=== PATIENT | female | born 1930 | race Caucasian/White ===

== ENCOUNTER → 2016-09-23 | Outpatient (CLI) | payer MEDICARE, BC ==
[2016-09-23 17:06] LABS: CHLORIDE,CL 101 mmol/L (98-110); SODIUM,NA 140 mmol/L (136-146)
--- NOTE | 2016-09-24 10:38 | CR ---
EXAM DATE: 09/23/16 PATIENT'S AGE: 86 Patient: SHILA LUQUE Facility: [place], [place] Site . Site : 1930 Study: XRay Chest [id number] 5:18:31 PM Ordering Physician: Mak Carrasquillo Final Report: INDICATION: Chest pain; cardiac valve replacement. Comparison: None. Technique: Two-view chest. Findings: Mild cardiomegaly. Bilateral pleural effusion. Atelectatic changes and / or infiltrates both lung bases. Mild CHF. Impression: Mild cardiomegaly. 1. CHF with bilateral pleural effusion. Dictated by Rosita Ma MD @ Sep 23 2016 5:33PM (Electronic Signature) Report Signed by Proxy and Original Signed Document filed in the Medical Record. MTDD
== END ==
LOC: MW.CHFP 16:24
PROVIDERS: ATTEND Emergency Medicine
DX: I48.91 Unspecified atrial fibrillation (principal); Z95.4 Presence of other heart-valve replacement; M54.9 Dorsalgia, unspecified; I50.9 Heart failure, unspecified; J90 Pleural effusion, not elsewhere classified
CPT/HCPCS: 36415; 71020; 71020-26; 80053; 84443; 85027; 99214

== ENCOUNTER 2017-05-02 11:40 | Emergency (ER) | payer MEDICARE, BC ==
[2017-05-02] MEDS ORDERED: Succinylcholine 200 MG/10 ML MDV IV ONE (11:41)
[2017-05-02] MEDS ORDERED: Rocuronium 50 MG/5 ML Vial IV ONE (11:41)
[2017-05-02] MEDS ORDERED: Sodium Chloride 0.9% 10 ML Syringe FLUSH PRN (12:02)
[2017-05-02] MEDS ORDERED: Sodium Chloride 0.9% 2.5 ML Syringe FLUSH PRN (12:02)
--- NOTE | 2017-05-02 12:14 | EDM.PDOC ---
ED HPI GENERAL MEDICAL PROBLEM - General Chief Complaint: Respiratory Problem Stated Complaint: SOB Time Seen by Provider: 05/02/17 11:43 - History of Present Illness INITIAL COMMENTS - FREE TEXT/NARRATIVE: HISTORY AND PHYSICAL: History of present illness: The patient is an 87-year-old female who has an extensive medical history and follows in our clinic with both our drafter (cad) electronic and family practice and has a history of controlled A. fib aortic valve replacement with bioprosthetic valve hypertension bilateral pleural effusions chronic oxygen use thrombocytopenia who recently had a chest x-ray on April 06 revealing a small left pleural effusion and a moderate right pleural effusion and who has also been seeing cardiology in [place], Dr. Mobley who has performed a total of 3 thoracentesis on the patient due to recurrent pleural effusions the last one being performed on April 07 and presents today with family with complaints of shortness of breath fatigue and increased somnolence. According to a close friend who has been functioning as a part-time caregiver she has been feeling increased fatigue and sleeping more than usual and has had difficulty waking up in the morning but by the middle of the day is doing better fact yesterday had similar symptoms and went out for a walk in the afternoon. This morning they noticed that she was more sleepy than usual and did not seem to regain any energy and she seemed more short of breath so they brought her here. When I ask her why she is here she is just saying that she sleeping all the time and she denies any chest pain abdominal pain nausea vomiting fever cough or leg pain. She does state that her legs have been swollen for some time and she does not think that they're significantly different or new. According to the caregiver she did have an increase of weight prior to the last thoracentesis but they have not been weighing her more recently. On my evaluation the patient does not state that she is short of breath and is cooperative and interactive but very hard of hearing. She is not the best historian and according to the friend she often doesn't complain of anything even though there are things that are wrong with her. Her daughter is in route to the hospital and may be able to provide more information. At this point we are unclear of her CODE STATUS or her wishes regarding intubation. Please note that according to the computer records from the clinic on December 23 [address] drafter (cad) electronic Dr. Oconnor stopped her Jantoven anticoagulation and placed her on 81 mg of aspirin only. According to her last clinic encounter note on April 23 she was presenting for follow-up after going a thoracentesis of bilateral lungs and she had a total of 3 L removed she says at that time that she still gets very winded and her oxygen level decreases are quickly with any exertion and she's fatigued and tired all the time. She had dependent edema at that time and she had some medication adjustment and has not followed up since that time. Review of systems: As per history of present illness and below otherwise all systems reviewed and negative. Past medical history: As per history of present illness and as reviewed below otherwise noncontributory. Surgical history: As per history of present illness and as reviewed below otherwise noncontributory. Social history: No reported history of drug or alcohol abuse. Family history: As per history of present illness and as reviewed below otherwise noncontributory. Physical exam: Gen.: Very frail thin woman who is speaking with slight breathlessness but is cooperative interactive and able to move about the bed without assistance but is somewhat breathless with transferring and any activities. She has some increased sleepiness but is very arousable. Her vitals have been noted by me. HEENT: Atraumatic, normocephalic, pupils reactive, negative for conjunctival pallor or scleral icterus, mucous membranes tacky, throat clear, neck supple, nontender, trachea midline. Lungs: There is severely diminished breath sounds bilaterally on the right side two thirds [address] the way up and on the left about one half of, there is some mild abdominal work of breathing but no gross intercostal muscle use, there is no wheezing or stridor, chest nontender. Heart: S1S2, regular rate and rhythm and there is a very loud mechanical murmur consistent with her aortic valve replacement appreciated at the left sternal border but which resonates throughout the chest Abdomen: Soft, nondistended, nontender the patient is tympanitic on percussion and bowel sounds are hypoactive. The abdomen is very globular but there is no tenderness rebound or guarding Negative for masses or hepatosplenomegaly. Negative for costovertebral tenderness. Pelvis: Stable nontender. Genitourinary: Deferred. Rectal: Deferred. Extremities: Atraumatic, negative for cords or calf pain. Neurovascular unremarkable. There is dependent edema which she has 2+ extending up to the level of the knees bilaterally without leg asymmetry Neuro: Awake, alert, oriented. Motor and sensory unremarkable throughout. Exam nonfocal. Back: The patient has kyphosis of the thoracic spine and is very frail but there are no palpable bony deformities of the posterior ribs or posterior pelvis and there are no midline step-offs tenderness or defects of the thoracic or lumbar spine. Skin: Turgor is diminished overall but there is no overt rashes or lesions Diagnostics: EKG 2 chest x-ray CBC CMP INR troponin BNP ABG Therapeutics: IV O2 monitor TKO IV fluids, CPap Lasix Initial O2 sat was 63% and after 10 L nonrebreather was placed her sats went up to 96%. She is still having the worker breathing so we will ask respiratory to assess for C Pap 1210: We are currently trying C Pap and the daughter is in route. At this point I will have a formal discussion with the daughter arrives regarding the patient' s wishes expressed wishes for long-term management of her airway if it becomes necessary. Currently her sats have come up with increased oxygen and we will reassess after C Pap is in place and an ABG is performed. 1230: Daughter is currently here at bedside and have discussed with her the chest x-ray findings and the patient's clinical state. She has seen the x-ray as well. She states that the patient would want everything performed to help her and she is aware that we are trying the C Pap and will reevaluate pending the ABG results to determine if she will need intubation. The daughter states that the patient's preference would be to go to [facility] in [place] where she has had intervention in the past. I will start making those phone calls to arrange that transfer. 1338: After phone calls to [facility] in [place] they have informed us that they do not the capability to accept this patient and the daughter and family friend at bedside are aware of this. Initially they did not want to go to [facility] in [place] but after some conversation they are now agreeable for transfer there. This case was discussed with Dr. Mena in the ER at 1338 and he accepts the patient for transfer. We will send all the clinic notes with her as well as push the x-ray from today and the one done previously on April 06. With the second ABG results of the patient will be intubated both for airway protection and for deterioration and CO2 retention. The daughter and family friend are aware that the second ABG is worsening and that it is not safe to not intubate her and try to maximize her lung abilities. Anesthesia is currently here at bedside and planning to intubate and then packaged for immediate transfer. Please see their notes for intubation procedure. In reading her old clinic reports there is documentation by our drafter (cad) electronic in December of this year that the patient's last echocardiogram was in February 2016 showing an EF of 55-60% trace TR trace MR mild to moderate MS and a normal functioning aVR. According to the clinic note of April 23 of this year the patient was on Lasix but Spirolactone 25 mg daily was started. The patient was offered local thoracentesis with Dr. weiner and she had deferred doing that due to her relationship with a drafter (cad) electronic in [place]. Critical care time excluding procedures--50 min Impression: Recurrent bilateral pleural effusions with dyspnea hypoxia/acute respiratory distress and hypercarbia Definitive disposition and diagnosis as appropriate pending reevaluation and review of above. - Related Data Allergies Allergy/AdvReac Type Severity Reaction Status Date / Time enalapril Allergy Cough Verified 05/02/17 13:04 Home Meds: Home Meds Aspirin 325 mg PO DAILY 04/11/16 [History] Calcium Carbonate/Vitamin D3 [Calcium 500-Vit D3 200 Tablet] 1 tab PO DAILY [History] Ferrous Gluconate 324 mg PO DAILY 04/11/16 [History] Furosemide 40 mg PO DAILY 04/11/16 [History] Magnesium Oxide [Magnesium] 400 mg PO BID 04/11/16 [History] Metoprolol Succinate [Toprol XL] 25 mg PO BID 04/11/16 [History] Spironolactone [Aldactone] 25 mg PO DAILY 05/02/17 [History] Past Medical History HEENT History: Reports: Cataract, Hard of Hearing, Impaired Vision Cardiovascular History: Reports: Other (See Below) Other Cardiovascular History: Hx of CHF and A-fib with 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 Stable since Gastrointestinal History: Reports: None. Denies: Celiac Disease, Cholelithiasis , Cirrhosis Genitourinary History: Reports: None. 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 Denies: Alzheimers Disease, CVA Psychiatric History: Reports: None. Denies: Addiction, Alzheimers Disease, Dementia, Psychosis, Suicide Attempt Endocrine/Metabolic History: Reports: None. Denies: [place]'s Disease, Diabetes , Type I, Diabetes, Type II Hematologic History: Reports: Anemia (Acute). Denies: Anticoagulation Therapy ( except aspirin), Hemochromatosis Immunologic History: Reports: None Oncologic (Cancer) History: Reports: Other (See Below) Dermatologic History: Reports: None - Infectious Disease History Infectious Disease History: Reports: Chicken Pox, Influenza, Measles, Mumps - Past Surgical History HEENT Surgical History: Reports: Cataract Surgery Cardiovascular Surgical History: Reports: Valve Replacement Musculoskeletal Surgical History: Reports: Knee Replacement, Other (See Below) Oncologic Surgical History: Reports: Mastectomy, Other (See Below) Social & Family History - Family History Family Medical History: Noncontributory - Tobacco Use Smoking Status *Q: Never Smoker - Caffeine Use Caffeine Use: Reports: None - Recreational Drug Use Recreational Drug Use: No ED ROS GENERAL - Review of Systems Review Of Systems: ROS reveals no pertinent complaints other than HPI. ED EXAM, GENERAL - Physical Exam Exam: See Below (See dictation) Course - Vital Signs Last Recorded V/S: Last Vital Signs Temp 36.6 C 05/02/17 13:28 Pulse 84 05/02/17 13:28 Resp 24 H 05/02/17 13:28 BP 132/77 05/02/17 13:28 Pulse Ox 96 05/02/17 12:05 - Orders/Labs/Meds Orders: Active Orders 24 hr Category Date Time Status Cardiac Monitoring [RC] . DIRECTED Care 05/02/17 12:01 Active EKG Documentation Completion [RC] STAT Care 05/02/17 12:00 Active EKG Documentation Completion [RC] STAT Care 05/02/17 12:03 Active Oxygen Therapy, ED [RC] ASDIRECTED Care 05/02/17 12:01 Active Pulse Oximetry [RC] ASDIRECTED Care 05/02/17 12:01 Active Chest 1V Frontal [CR] Stat Exams 05/02/17 12:01 Taken Sodium Chloride 0.9% [Normal Saline] 1,000 ml Med 05/02/17 12:15 Active IV ASDIRECTED Sodium Chloride 0.9% [Saline Flush] Med 05/02/17 12:02 Active 10 ml FLUSH ASDIRECTED PRN Sodium Chloride 0.9% [Saline Flush] Med 05/02/17 12:02 Active 2.5 ml FLUSH ASDIRECTED PRN Saline Lock Insert [OM.PC] Stat Oth 05/02/17 12:01 Ordered Medication Orders Sodium Chloride (Normal Saline) 1,000 mls @ 20 mls/hr IV ASDIRECTED ALVAREZ Last Admin: 05/02/17 12:07 Dose: 20 mls/hr Sodium Chloride (Saline Flush) 10 ml FLUSH ASDIRECTED PRN PRN Reason: Keep Vein Open Last Admin: 05/02/17 12:11 Dose: 10 ml Sodium Chloride (Saline Flush) 2.5 ml FLUSH ASDIRECTED PRN PRN Reason: Keep Vein Open Last Admin: 05/02/17 12:11 Dose: 2.5 ml Labs: Laboratory Tests 05/02/17 05/02/17 05/02/17 Range/Units 11:55 11:55 11:55 WBC 5.11 (4.0-11.0) K/uL RBC 4.72 (4.30-5.90) M/uL Hgb 13.9 (12.0-16.0) g/dL Hct 47.8 H (36.0-46.0) % MCV 101.3 H (80.0-98.0) fL MCH 29.4 (27.0-32.0) pg MCHC 29.1 L (31.0-37.0) g/dL RDW Std Deviation 55.3 (28.0-62.0) fl RDW Coeff of Shravan 15 (11.0-15.0) % Plt Count 114 L (150-400) K/uL MPV 11.00 (7.40-12.00) fL Neut % (Auto) 84.6 H (48.0-80.0) % Lymph % (Auto) 7.4 L (16.0-40.0) % Caldwell % (Auto) 7.4 (0.0-15.0) % Eos % (Auto) 0.2 (0.0-7.0) % Baso % (Auto) 0.4 (0.0-1.5) % Neut # (Auto) 4.3 (1.4-5.7) K/uL Lymph # (Auto) 0.4 L (0.6-2.4) K/uL Caldwell # (Auto) 0.4 (0.0-0.8) K/uL Eos # (Auto) 0.0 (0.0-0.7) K/uL Baso # (Auto) 0.0 (0.0-0.1) K/uL Nucleated RBC % 0.0 /100WBC Nucleated RBCs # 0 K/uL INR 1.05 (0.86-1.11) ABG pH (7.35-7.45) ABG pCO2 (35-45) mmHG ABG pO2 (75-100) mmHG ABG HCO3 (22-26) mEq/L ABG Total CO2 ABG Base Excess (-2.0-2.0) Sodium 144 (136-146) mmol/L Potassium 4.4 (3.5-5.1) mmol/L Chloride 92 L (98-110) mmol/L Carbon Dioxide 38 H (21-31) mmol/L BUN 38 H (6.0-23.0) mg/dL Creatinine 0.8 (0.6-1.5) mg/dL Est Cr Clr Drug Dosing 43.67 mL/min Estimated GFR (MDRD) > 60.0 ml/min Glucose 182 H (60-110) mg/dL Calcium 9.6 (8.8-10.8) mg/dL Total Bilirubin 0.4 (0.1-1.5) mg/dL AST 37 (5-40) IU/L ALT 32 (8-54) IU/L Alkaline Phosphatase 95 (40-150) Troponin I (0.0-0.29) NG/ML B-Natriuretic Peptide (<100) PG/ML Total Protein 7.1 (6.0-8.0) g/dL Albumin 3.1 L (3.4-4.8) g/dL Globulin 4.0 H (2.0-3.5) g/dL Albumin/Globulin Ratio 0.8 L (1.3-2.8) 05/02/17 05/02/17 05/02/17 Range/Units 11:55 11:55 12:50 WBC (4.0-11.0) K/uL RBC (4.30-5.90) M/uL Hgb (12.0-16.0) g/dL Hct (36.0-46.0) % MCV (80.0-98.0) fL MCH (27.0-32.0) pg MCHC (31.0-37.0) g/dL RDW Std Deviation (28.0-62.0) fl RDW Coeff of Shravan (11.0-15.0) % Plt Count (150-400) K/uL MPV (7.40-12.00) fL Neut % (Auto) (48.0-80.0) % Lymph % (Auto) (16.0-40.0) % Caldwell % (Auto) (0.0-15.0) % Eos % (Auto) (0.0-7.0) % Baso % (Auto) (0.0-1.5) % Neut # (Auto) (1.4-5.7) K/uL Lymph # (Auto) (0.6-2.4) K/uL Caldwell # (Auto) (0.0-0.8) K/uL Eos # (Auto) (0.0-0.7) K/uL Baso # (Auto) (0.0-0.1) K/uL Nucleated RBC % /100WBC Nucleated RBCs # K/uL INR (0.86-1.11) ABG pH 7.324 L (7.35-7.45) ABG pCO2 100 H (35-45) mmHG ABG pO2 78 (75-100) mmHG ABG HCO3 52 H (22-26) mEq/L ABG Total CO2 47.4 ABG Base Excess 20.4 H (-2.0-2.0) Sodium (136-146) mmol/L Potassium (3.5-5.1) mmol/L Chloride (98-110) mmol/L Carbon Dioxide (21-31) mmol/L BUN (6.0-23.0) mg/dL Creatinine (0.6-1.5) mg/dL Est Cr Clr Drug Dosing mL/min Estimated GFR (MDRD) ml/min Glucose (60-110) mg/dL Calcium (8.8-10.8) mg/dL Total Bilirubin (0.1-1.5) mg/dL AST (5-40) IU/L ALT (8-54) IU/L Alkaline Phosphatase (40-150) Troponin I < 0.10 (0.0-0.29) NG/ML B-Natriuretic Peptide 253 H (<100) PG/ML Total Protein (6.0-8.0) g/dL Albumin (3.4-4.8) g/dL Globulin (2.0-3.5) g/dL Albumin/Globulin Ratio (1.3-2.8) 05/02/17 Range/Units 13:31 WBC (4.0-11.0) K/uL RBC (4.30-5.90) M/uL Hgb (12.0-16.0) g/dL Hct (36.0-46.0) % MCV (80.0-98.0) fL MCH (27.0-32.0) pg MCHC (31.0-37.0) g/dL RDW Std Deviation (28.0-62.0) fl RDW Coeff of Shravan (11.0-15.0) % Plt Count (150-400) K/uL MPV (7.40-12.00) fL Neut % (Auto) (48.0-80.0) % Lymph % (Auto) (16.0-40.0) % Caldwell % (Auto) (0.0-15.0) % Eos % (Auto) (0.0-7.0) % Baso % (Auto) (0.0-1.5) % Neut # (Auto) (1.4-5.7) K/uL Lymph # (Auto) (0.6-2.4) K/uL Caldwell # (Auto) (0.0-0.8) K/uL Eos # (Auto) (0.0-0.7) K/uL Baso # (Auto) (0.0-0.1) K/uL Nucleated RBC % /100WBC Nucleated RBCs # K/uL INR (0.86-1.11) ABG pH 7.275 L (7.35-7.45) ABG pCO2 > 107 H (35-45) mmHG ABG pO2 82 (75-100) mmHG ABG HCO3 55.1 (22-26) mEq/L ABG Total CO2 > 50 ABG Base Excess 22 (-2.0-2.0) Sodium (136-146) mmol/L Potassium (3.5-5.1) mmol/L Chloride (98-110) mmol/L Carbon Dioxide (21-31) mmol/L BUN (6.0-23.0) mg/dL Creatinine (0.6-1.5) mg/dL Est Cr Clr Drug Dosing mL/min Estimated GFR (MDRD) ml/min Glucose (60-110) mg/dL Calcium (8.8-10.8) mg/dL Total Bilirubin (0.1-1.5) mg/dL AST (5-40) IU/L ALT (8-54) IU/L Alkaline Phosphatase (40-150) Troponin I (0.0-0.29) NG/ML B-Natriuretic Peptide (<100) PG/ML Total Protein (6.0-8.0) g/dL Albumin (3.4-4.8) g/dL Globulin (2.0-3.5) g/dL Albumin/Globulin Ratio (1.3-2.8) Meds: Medications Generic Name Dose Route Start Last Admin Trade Name Freq PRN Reason Stop Dose Admin Sodium Chloride 1,000 mls @ 20 mls/hr 05/02/17 12:15 05/02/17 12:07 Normal Saline IV 20 mls/hr ASDIRECTED ALVAREZ Administration Sodium Chloride 10 ml 05/02/17 12:02 05/02/17 12:11 Saline Flush FLUSH 10 ml ASDIRECTED PRN Administration Keep Vein Open Sodium Chloride 2.5 ml 05/02/17 12:02 05/02/17 12:11 Saline Flush FLUSH 2.5 ml ASDIRECTED PRN Administration Keep Vein Open Discontinued Medications Generic Name Dose Route Start Last Admin Trade Name Freq PRN Reason Stop Dose Admin Furosemide 60 mg 05/02/17 12:24 05/02/17 12:31 Lasix IVPUSH 05/02/17 12:25 60 mg NOW ONE Administration Propofol Confirm 05/02/17 13:42 Diprivan 20 Ml Administered 05/02/17 13:43 Dose 200 mg .ROUTE .STK-MED ONE Departure - Departure Time of Disposition: 13:49 Disposition: DC/Tfer to Acute Hospital 02 Condition: Fair Clinical Impression: Acute respiratory distress, Bilateral pleural effusion, Acute respiratory failure with hypoxia and hypercarbia - Discharge Information Referrals: PCP,None [Primary Care Provider] - Forms: ED Department Discharge - My Orders Last 24 Hours: My Active Orders 05/02/17 12:00 EKG Documentation Completion [RC] STAT 05/02/17 12:01 Cardiac Monitoring [RC] . DIRECTED Oxygen Therapy, ED [RC] ASDIRECTED Pulse Oximetry [RC] ASDIRECTED Chest 1V Frontal [CR] Stat Saline Lock Insert [OM.PC] Stat 05/02/17 12:02 Sodium Chloride 0.9% [Saline Flush] 10 ml FLUSH ASDIRECTED PRN Sodium Chloride 0.9% [Saline Flush] 2.5 ml FLUSH ASDIRECTED PRN 05/02/17 12:03 EKG Documentation Completion [RC] STAT 05/02/17 12:15 Sodium Chloride 0.9% [Normal Saline] 1,000 ml IV ASDIRECTED - Assessment/Plan Last 24 Hours: My Active Orders 05/02/17 12:00 EKG Documentation Completion [RC] STAT 05/02/17 12:01 Cardiac Monitoring [RC] . DIRECTED Oxygen Therapy, ED [RC] ASDIRECTED Pulse Oximetry [RC] ASDIRECTED Chest 1V Frontal [CR] Stat Saline Lock Insert [OM.PC] Stat 05/02/17 12:02 Sodium Chloride 0.9% [Saline Flush] 10 ml FLUSH ASDIRECTED PRN Sodium Chloride 0.9% [Saline Flush] 2.5 ml FLUSH ASDIRECTED PRN 05/02/17 12:03 EKG Documentation Completion [RC] STAT 05/02/17 12:15 Sodium Chloride 0.9% [Normal Saline] 1,000 ml IV ASDIRECTED
[2017-05-02] MEDS ORDERED: Sodium Chloride 0.9% 1,000 ML IV SCH (12:15)
[2017-05-02 12:22] LABS: CHLORIDE,CL 92 mmol/L (98-110); SODIUM,NA 144 mmol/L (136-146)
[2017-05-02] MEDS ORDERED: Furosemide 40 MG/4 ML VIAL IVPUSH ONE (12:24)
[2017-05-02] MEDS ORDERED: fentaNYL 100 MCG/2 ML SDV ONE (13:48)
[2017-05-02] MEDS ORDERED: Midazolam 1 MG/ML 2 ML SDV ONE (13:49)
[2017-05-02] MEDS: Propofol 200 MG/20 ML SDV ONE ×2 (14:00→14:30)
--- NOTE | 2017-05-02 14:46 | PCM.SN ---
- Free Text/Narrative Note: Called for intubation for transport, Bipap mask in place, 100% per ambu, 1 mg versed IV, 50 mcg fentanyl, 100 mg IV Propofol, 100 mg IV succinylcholine, intubated with glidescope 3, after attempting with Parker 2 and MAC 3, bilateral breath sounds, positive end tidal CO2, chest x-ray pending, 7.0 ETT 22 cm at teeth,
[2017-05-02 15:40] VITALS: BP 98/57
[2017-05-02] MEDS ORDERED: fentaNYL 100 MCG/2 ML SDV IVPUSH PRN (19:23)
[2017-05-02] MEDS ORDERED: Propofol 200 MG/20 ML SDV IVPUSH ONE (19:24)
[2017-05-02] MEDS ORDERED: Midazolam 5 MG/ML SDV IVPUSH ONE (19:25)
[2017-05-02] MEDS ORDERED: fentaNYL 100 MCG/2 ML SDV IVPUSH STA (19:32)
--- NOTE | 2017-05-03 11:33 | CR ---
EXAM DATE: 05/02/17 PATIENT'S AGE: 87 Patient: SHILA LUQUE Facility: [place], [place] Site . Site : 1930 Study: XRay Chest [id number]/8/[id number] 12:08:03 PM Ordering Physician: Ramila Corona Final Report: INDICATION: Short of breath. Technique: Portable chest. Comparison: Two-view chest on 04/06/2017. Findings: Status post median sternotomy. Heart borders completely obscured by bilateral atelectasis and pleural effusions. Pulmonary vessels are congested. Impression: Interval worsening of congestive changes. Heart borders obscured by bilateral pleural effusions and atelectasis. Dictated by Paxton Johnson MD @ May 02 2017 12:15PM (Electronic Signature) Report Signed by Proxy. [facility] FACILITYAnastasia
--- NOTE | 2017-05-03 11:35 | CR ---
EXAM DATE: 05/02/17 PATIENT'S AGE: 87 Patient: SHILA LUQUE Facility: [place], [place] Site . Site : 1930 Study: XRay Chest [id number]/[id number] 2:23:50 PM Ordering Physician: Ramila Corona Final Report: INDICATION: Post intubation. Technique: Portable chest at 1417 hours. Comparison: Portable chest at 1202 hours. Findings: Status post median sternotomy and valve replacement. Distal tip of an endotracheal tube 6 cm above the mary. No pneumothorax. Heart and mediastinum are stable. Pulmonary vessels are congested. Bilateral airspace infiltrates versus pulmonary edema. Bibasilar atelectasis and bilateral pleural effusions, right greater than left. Impression : 1. Distal tip of the endotracheal tube 6 centimeters above the carinal. No pneumothorax. 2. Pulmonary vascular congestion 3. Bilateral pulmonary edema versus airspace infiltrates. 4. Bibasilar atelectasis and bilateral pleural effusions, right larger than left. Dictated by Paxton Johnson MD @ May 02 2017 2:31PM (Electronic Signature) Report Signed by Proxy. FRAN
== END 2017-05-02 14:30 ==
LOC: MW.ED 11:40
DX: J96.01 Acute respiratory failure with hypoxia (principal); J96.02 Acute respiratory failure with hypercapnia; J90 Pleural effusion, not elsewhere classified; I10 Essential (primary) hypertension; Z88.8 Allergy status to other drugs, medicaments and biological substances; Z79.899 Other long term (current) drug therapy; Z79.82 Long term (current) use of aspirin
CPT/HCPCS: 31500; 36600; 51702; 71010; 80053; 82803; 83880; 84484; 85025; 85610; 93005; 94660; 96361; 96374; 99285; J0330; J1940; J2250; J3010; J7040; J2704

== ENCOUNTER 2017-08-08 14:30 | Emergency (ER) | payer MEDICARE, BC ==
[2017-08-08 14:49] VITALS: BP 152/78
--- NOTE | 2017-08-08 16:22 | EDM.PDOC ---
ED HPI GENERAL MEDICAL PROBLEM - General Chief Complaint: General Stated Complaint: CHEST CONGESTION,COUGH Time Seen by Provider: 08/08/17 16:21 Source of Information: Reports: Patient - History of Present Illness INITIAL COMMENTS - FREE TEXT/NARRATIVE: HISTORY AND PHYSICAL: History of present illness: [Patient has had some productive cough and congestion over the last 48 hours along with mild sore throat and ear pain no actual fever nausea vomiting chills sweats no chest pain shortness breath headache dizziness or palpitation History of bilateral pleural effusion with weekly scheduled drainage ] Review of systems: As per history of present illness and below otherwise all systems reviewed and negative. Past medical history: As per history of present illness and as reviewed below otherwise noncontributory. Surgical history: As per history of present illness and as reviewed below otherwise noncontributory. Social history: No reported history of drug or alcohol abuse. Family history: As per history of present illness and as reviewed below otherwise noncontributory. Physical exam: HEENT: Atraumatic, normocephalic, pupils reactive, negative for conjunctival pallor or scleral icterus, mucous membranes moist, throat clear, neck supple, nontender, trachea midline. Lungs: Clear to auscultation, breath sounds equal bilaterally, chest nontender. Heart: S1S2, regular, negative for clicks, rubs, or JVD. Abdomen: Soft, nondistended, nontender. Negative for masses or hepatosplenomegaly. Negative for costovertebral tenderness. Pelvis: Stable nontender. Genitourinary: Deferred. Rectal: Deferred. Extremities: Atraumatic, negative for cords or calf pain. Neurovascular unremarkable. Neuro: Awake, alert, oriented. Cranial nerves II through XII unremarkable. Cerebellum unremarkable. Motor and sensory unremarkable throughout. Exam nonfocal. Diagnostics: [Chest 2 views Influenza A ] Therapeutics: [Z-Nahid 250 mg dosing Patient offered admission for observation she refuses she states she'll return if symptoms persist or worsen she does not desire to stay in the hospital Tamiflu Phenergan With Codeine [id number] symptomatic therapies Return if symptoms persist or worsen ] Impression: Influenza infiltrate on chest x-ray Bilateral pleural effusions Chronic history of baseline] Definitive disposition and diagnosis as appropriate pending reevaluation and review of above. - Related Data Allergies Allergy/AdvReac Type Severity Reaction Status Date / Time enalapril Allergy Cough Verified 08/08/17 14:46 Home Meds: Home Meds Acetaminophen [Tylenol Arthritis Pain] 650 mg PO DAILY 08/08/17 [History] Albuterol Sulfate 2.5 mg INH DAILY 08/08/17 [History] Alum Hydrox/Mag Hydrox/Simeth [Mag-Al Plus] 30 ml PO DAILY 08/08/17 [History] Aspirin 325 mg PO DAILY 08/08/17 [History] Calcium Carbonate [Calcium] 500 mg PO DAILY 08/08/17 [History] Famotidine [Pepcid] 20 mg PO DAILY 08/08/17 [History] Furosemide [Lasix] 40 mg PO DAILY 08/08/17 [History] Loperamide [Imodium] 2 mg PO DAILY 08/08/17 [History] Magnesium Oxide 400 mg PO DAILY 08/08/17 [History] Meclizine [Antivert] 12.5 mg PO DAILY 08/08/17 [History] Metoprolol Succinate 50 mg PO DAILY 08/08/17 [History] Potassium Bicarbonate/Cit Ac [Potassium 25 Meq Tablet Eff] 20 meq PO DAILY 08/08 [History] acetaZOLAMIDE [Acetazolamide] 250 mg PO DAILY 08/08/17 [History] Past Medical History HEENT History: Reports: Cataract, Hard of Hearing, Impaired Vision Cardiovascular History: Reports: Other (See Below) Other Cardiovascular History: Hx of CHF and A-fib with 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 Stable since Respiratory History: Reports: None Gastrointestinal History: Reports: None Genitourinary History: Reports: None [employer] History: Reports: Musculoskeletal History: Reports: Other (See Below) Other Musculoskeletal History: recent low back pain; has been seeing a chiropractor Neurological History: Reports: None Psychiatric History: Reports: None Endocrine/Metabolic History: Reports: None Hematologic History: Reports: Anemia Immunologic History: Reports: None Oncologic (Cancer) History: Reports: Other (See Below) Dermatologic History: Reports: None - Infectious Disease History Infectious Disease History: Reports: Chicken Pox, Measles, Mumps - Past Surgical History Head Surgeries/Procedures: Reports: None HEENT Surgical History: Reports: Cataract Surgery Cardiovascular Surgical History: Reports: Valve Replacement GI Surgical History: Reports: None Female Surgical History: Reports: None Neurological Surgical History: Reports: None Musculoskeletal Surgical History: Reports: Knee Replacement, Other (See Below) 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 ED EXAM, GENERAL - Physical Exam Exam: See Below Course - Vital Signs Last Recorded V/S: Last Vital Signs Temp 97.3 F 08/08/17 14:46 Pulse 98 08/08/17 14:46 Resp 18 08/08/17 14:46 BP 152/78 H 08/08/17 14:46 Pulse Ox 90 L 08/08/17 14:46 - Orders/Labs/Meds Orders: Active Orders 24 hr Category Date Time Status Chest 2V [CR] Stat Exams 08/08/17 15:53 Taken Departure - Departure Time of Disposition: 16:35 Disposition: Home, Self-Care 01 Condition: Good Clinical Impression: Bilateral pleural effusion, Pulmonary infiltrate on chest x-ray, Cough - Discharge Information Referrals: Naeem Corado MD [Primary Care Provider] - Forms: ED Department Discharge Additional Instructions: Follow-up for scheduled drainage of pleural effusions Return if symptoms persist or worsen or new concerning symptoms develop Follow-up with primary care in 2 weeks sooner as needed Medication as prescribed Tylenol 650 mg every 6 hours as needed Thera-flu or NyQuil may benefit [facility] of therapy is rest fluids nutrition The following information is given to patients seen in the emergency department who are being discharged to home. This information is to outline your options for follow-up care. We provide all patients seen in our emergency department with a follow-up referral. The need for follow-up, as well as the timing and circumstances, are variable depending upon the specifics of your emergency department visit. If you don't have a primary care physician on staff, we will provide you with a referral. We always advise you to contact your personal physician following an emergency department visit to inform them of the circumstance of the visit and for follow-up with them and/or the need for any referrals to a consulting specialist. The emergency department will also refer you to a specialist when appropriate. This referral assures that you have the opportunity for follow-up care with a specialist. All of these measure are taken in an effort to provide you with optimal care, which includes your follow-up. Under all circumstances we always encourage you to contact your private physician who remains a resource for coordinating your care. When calling for follow-up care, please make the office aware that this follow-up is from your recent emergency room visit. If for any reason you are refused follow-up, please contact the [facility] emergency department at and asked to speak to the emergency department charge nurse. - My Orders Last 24 Hours: My Active Orders 08/08/17 15:53 Chest 2V [CR] Stat - Assessment/Plan Last 24 Hours: My Active Orders 08/08/17 15:53 Chest 2V [CR] Stat
--- NOTE | 2017-08-09 19:38 | CR ---
EXAM DATE: 08/08/17 PATIENT'S AGE: 87 Patient: SHILA LUQUE Facility: [place], [place] Site . Site : 1930 Study: XRay Chest [id number]/14/2018 4:23:17 PM Ordering Physician: Megan Rice Final Report: HISTORY: Shortness of breath, chest pain. TECHNIQUE: Two views of the chest. COMPARISON: 05/02/2017. FINDINGS: Changes of sternotomy and valve replacement. There are bilateral chest tubes. No pneumothorax. Diminished pleural effusions bilaterally with a small amount of residual pleural fluid bilaterally. On the right, there is fluid within the fissure. Bibasilar atelectasis. Mid to upper lung zones are clear. IMPRESSION: 1. Bilateral chest tubes in place. 2. Diminished pleural effusions as compared to the prior examination with a small residual pleural effusion is present. On the right there is fluid within the fissure. 3. Bibasilar atelectasis. 4. Changes of prior sternotomy and valve replacement. Dictated by Hal Bruno MD @ 08/08/2017 4:46:15 PM Dictated by: Hal Bruno MD @ 08/08/2017 16:46:24 (Electronic Signature) Report Signed by Proxy. [facility] HOSPITALAnastasia
== END 2017-08-08 17:16 | disposition home or self-care (01) ==
LOC: MW.ED 14:30
DX: J90 Pleural effusion, not elsewhere classified (principal); J11.1 Influenza due to unidentified influenza virus with other respiratory manifestations; R91.8 Other nonspecific abnormal finding of lung field; I50.9 Heart failure, unspecified; Z79.82 Long term (current) use of aspirin; Z79.899 Other long term (current) drug therapy; Z88.8 Allergy status to other drugs, medicaments and biological substances
CPT/HCPCS: 71046; 71046-26; 87804; 99283

== ENCOUNTER 2017-08-09 16:21 | Inpatient (IN) | payer MEDICARE, BC ==
[2017-08-09] MEDS ORDERED: methylPREDNISolone Sodium Succinate 125 MG/2 ML SDV IVPUSH ONE (16:42)
[2017-08-09] MEDS ORDERED: Albuterol/Ipratropium 3.0-0.5 MG/3 ML Neb Soln NEB ONE (16:42)
--- NOTE | 2017-08-09 16:43 | EDM.PDOC ---
ED HPI GENERAL MEDICAL PROBLEM - General Stated Complaint: PT WEAK AND LOW BLOOD PRESSURE Time Seen by Provider: 08/09/17 16:43 Source of Information: Reports: Patient - History of Present Illness INITIAL COMMENTS - FREE TEXT/NARRATIVE: HISTORY AND PHYSICAL: History of present illness: []Patient was seen the day prior with influenza she presents with weakness and hypoxia today she had declined admission on previous examination Review of systems: As per history of present illness and below otherwise all systems reviewed and negative. Past medical history: As per history of present illness and as reviewed below otherwise noncontributory. Surgical history: As per history of present illness and as reviewed below otherwise noncontributory. Social history: No reported history of drug or alcohol abuse. Family history: As per history of present illness and as reviewed below otherwise noncontributory. Physical exam: HEENT: Atraumatic, normocephalic, pupils reactive, negative for conjunctival pallor or scleral icterus, mucous membranes moist, throat clear, neck supple, nontender, trachea midline. Lungs: Clear to auscultation, breath sounds equal bilaterally, chest nontender. Heart: S1S2, regular, negative for clicks, rubs, or JVD. Abdomen: Soft, nondistended, nontender. Negative for masses or hepatosplenomegaly. Negative for costovertebral tenderness. Pelvis: Stable nontender. Genitourinary: Deferred. Rectal: Deferred. Extremities: Atraumatic, negative for cords or calf pain. Neurovascular unremarkable. Neuro: Awake, alert, oriented. Cranial nerves II through XII unremarkable. Cerebellum unremarkable. Motor and sensory unremarkable throughout. Exam nonfocal. Diagnostics: [CBC BMP Blood cultures ] Therapeutics: [DuoNeb Solu-Medrol ] Impression: [Hypoxia Hypotension Influenza] Definitive disposition and diagnosis as appropriate pending reevaluation and review of above. Abdomen Pain Score (Numeric/FACES): 0 - Related Data Allergies Allergy/AdvReac Type Severity Reaction Status Date / Time enalapril Allergy Cough Verified 08/09/17 16:45 Home Meds: Home Meds Acetaminophen [Tylenol Arthritis Pain] 650 mg PO DAILY 08/08/17 [History] Albuterol Sulfate 2.5 mg INH Q6H PRN 08/08/17 [History] Alum Hydrox/Mag Hydrox/Simeth [Mag-Al Plus] 1 - 2 tbsp PO Q4H PRN 08/08/17 [ History] Aspirin 325 mg PO DAILY 08/08/17 [History] Calcium Carbonate [Calcium] 500 mg PO DAILY 08/08/17 [History] Famotidine [Pepcid] 20 mg PO BID 08/08/17 [History] Furosemide [Lasix] 40 mg PO DAILY 08/08/17 [History] Loperamide [Imodium] 2 mg PO DAILY 08/08/17 [History] Magnesium Oxide 400 mg PO BID 08/08/17 [History] Meclizine [Antivert] 12.5 mg PO DAILY 08/08/17 [History] acetaZOLAMIDE [Acetazolamide] 250 mg PO BID 08/08/17 [History] Albuterol Sulfate [Proair Respiclick] 2 puff IH Q6H PRN 08/09/17 [History] Azithromycin [IMW: Azithromycin] 250 mg PO DAILY 08/09/17 [History] Calcium Citrate/Vitamin D3 [Calcium Citrate - Vit D Caplet] 1 each PO DAILY [History] Codeine/Promethazine HCl [Promethazine-Codeine Syrup] 5 - 10 ml PO Q6H PRN 08/09 [History] Dextran 70/Hypromellose/PF [Artificial Tears Drops] 1 each OP Q6H PRN 08/09/17 [ History] Magnesium Hydroxide [Milk of Magnesia] 30 ml PO Q72H PRN 08/09/17 [History] Metoprolol Tartrate 50 mg PO BID 08/09/17 [History] Oseltamivir [Tamiflu] 1 tab PO BID 08/09/17 [History] Potassium Chloride 20 meq PO DAILY 08/09/17 [History] guaiFENesin [Tussin] 1 tsp PO Q4H PRN 08/09/17 [History] Past Medical History HEENT History: Reports: Cataract, Hard of Hearing, Impaired Vision Cardiovascular History: Reports: Other (See Below) Other Cardiovascular History: Hx of CHF and A-fib with 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 Stable since Respiratory History: Reports: None Gastrointestinal History: Reports: None Genitourinary History: Reports: None [employer] History: Reports: Musculoskeletal History: Reports: Other (See Below) Other Musculoskeletal History: recent low back pain; has been seeing a chiropractor Neurological History: Reports: None Psychiatric History: Reports: None Endocrine/Metabolic History: Reports: None Hematologic History: Reports: Anemia Immunologic History: Reports: None Oncologic (Cancer) History: Reports: Other (See Below) Dermatologic History: Reports: None - Infectious Disease History Infectious Disease History: Reports: Chicken Pox, Measles, Mumps - Past Surgical History Head Surgeries/Procedures: Reports: None HEENT Surgical History: Reports: Cataract Surgery Cardiovascular Surgical History: Reports: Valve Replacement GI Surgical History: Reports: None Female Surgical History: Reports: None Neurological Surgical History: Reports: None Musculoskeletal Surgical History: Reports: Knee Replacement, Other (See Below) 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 ED EXAM, GENERAL - Physical Exam Exam: See Below Course - Vital Signs Last Recorded V/S: Last Vital Signs Temp 97.2 F 08/11/17 16:00 Pulse 67 08/09/17 18:30 Resp 10 L 08/11/17 19:00 BP 124/50 L 08/11/17 19:00 Pulse Ox 94 L 08/11/17 19:00 - Orders/Labs/Meds Labs: Laboratory Tests 08/09/17 08/09/17 08/09/17 Range/Units 16:49 16:49 16:49 WBC 8.28 (4.0-11.0) K/uL RBC 4.02 L (4.30-5.90) M/uL Hgb 10.5 L (12.0-16.0) g/dL Hct 36.0 (36.0-46.0) % MCV 89.6 (80.0-98.0) fL MCH 26.1 L (27.0-32.0) pg MCHC 29.2 L (31.0-37.0) g/dL RDW Std Deviation 50.6 (28.0-62.0) fl RDW Coeff of Shravan 16 H (11.0-15.0) % Plt Count 166 (150-400) K/uL MPV 9.90 (7.40-12.00) fL Add Manual Diff YES Neutrophils % (Manual) 71 (48.0-80.0) % Band Neutrophils % 7 % Lymphocytes % (Manual) 11 L (16.0-40.0) % Monocytes % (Manual) 11 (0.0-15.0) % Nucleated RBC % 0.0 /100WBC Absolute Seg Neuts 5.9 H (1.4-5.7) Band Neutrophils # 0.6 Lymphocytes # (Manual) 0.9 (0.6-2.4) Monocytes # (Manual) 0.9 H (0.0-0.8) Nucleated RBCs # 0 K/uL Lactate 1.4 (0.20-2.00) mmol/L Sodium 140 (136-146) mmol/L Potassium 4.2 (3.5-5.1) mmol/L Chloride 105 (98-110) mmol/L Carbon Dioxide 23 (21-31) mmol/L BUN 45 H (6.0-23.0) mg/dL Creatinine 1.1 (0.6-1.5) mg/dL Est Cr Clr Drug Dosing 30.53 mL/min Estimated GFR (MDRD) 46.9 ml/min Glucose 141 H (60-110) mg/dL Calcium 8.2 L (8.8-10.8) mg/dL Meds: Medications Discontinued Medications Generic Name Dose Route Start Last Admin Trade Name Freq PRN Reason Stop Dose Admin Albuterol/Ipratropium 3 ml 08/09/17 16:42 08/09/17 16:58 Duoneb 3.0-0.5 Mg/3 Ml NEB 08/09/17 16:43 3 ml ONETIME ONE Administration Albuterol/Ipratropium 3 ml 08/09/17 18:11 Duoneb 3.0-0.5 Mg/3 Ml NEB Q4H PRN Shortness of Breath Atropine Sulfate 1 mg 08/11/17 19:29 Atropine 0.1 Mg/Ml IV 08/11/17 19:30 .STK-MED ONE Calcium Carbonate/Glycine 1,000 mg 08/11/17 16:05 08/11/17 17:08 Tums PO 08/11/17 16:06 1,000 mg ONETIME ONE Administration Dextrose/Water 10 ml 01/17/18 19:29 Dextrose 25% In Water IV 08/11/17 19:30 .STK-MED ONE Dicyclomine HCl 20 mg 08/10/17 21:00 08/10/17 21:11 Bentyl PO 08/10/17 21:01 20 mg ONETIME ONE Administration Enoxaparin Sodium 30 mg 08/10/17 09:00 08/11/17 09:24 Lovenox SUBCUT 30 mg DAILY ALVAREZ Administration Epinephrine HCl 1 mg 08/11/17 19:29 Epinephrine 1:10,000 IV 08/11/17 19:30 .STK-MED ONE Etomidate 40 mg 08/11/17 19:29 Amidate IVPUSH 08/11/17 19:30 .STK-MED ONE Sodium Chloride 1,000 mls @ 125 mls/hr 08/09/17 16:45 08/09/17 16:58 Normal Saline IV 125 mls/hr STAT ALVAREZ Administration Piperacillin Sod/Tazobactam 50 mls @ 100 mls/hr 08/09/17 17:20 08/09/17 17:28 Sod 3.375 gm/ Sodium Chloride IV 08/09/17 17:49 100 mls/hr ONETIME ONE Administration Levofloxacin/Dextrose 750 mg/ 150 mls @ 100 mls/hr 08/09/17 18:09 08/09/17 18 :50 Premix IV 08/09/17 19:38 100 mls/hr ONETIME ONE Administration Piperacillin Sod/Tazobactam 50 mls @ 100 mls/hr 08/09/17 23:00 08/11/17 18:16 Sod 3.375 gm/ Sodium Chloride IV 100 mls/hr Q6H ALVAREZ Administration Sodium Chloride 1,000 mls @ 75 mls/hr 08/09/17 18:15 08/11/17 08:40 Normal Saline IV 75 mls/hr ASDIRECTED ALVAREZ Administration Sodium Chloride 500 mls @ 1,000 mls/hr 08/09/17 19:45 08/09/17 19:50 Normal Saline IV 1,000 mls/hr .BOLUS ALVAREZ Administration Levofloxacin/Dextrose 750 mg/ 150 mls @ 100 mls/hr 08/11/17 18:00 Premix IV Q48H ALVAREZ Norepinephrine Bitartrate 4 mg in 250 mls @ 7.5 mls/hr 08/09/17 21:00 16:54 Norepinephr-0.9% Nacl 4 Mg/250 IV 2 mcg/min TITRATE ALVAREZ 7.5 mls/hr Protocol Titration 2 MCG/MIN Vancomycin HCl 1 gm/ Sodium 250 mls @ 166 mls/hr 08/09/17 21:00 08/11/17 09: 24 Chloride IV 08/11/17 12:00 166 mls/hr Q12H ALVAREZ Administration Magnesium Sulfate 2 gm/ Premix 50 mls @ 25 mls/hr 08/10/17 07:15 08/10/17 07: 42 IV 08/10/17 09:14 25 mls/hr ONETIME ONE Administration Vancomycin HCl 1 gm/ Sodium 250 mls @ 166 mls/hr 08/12/17 09:00 Chloride IV Q24H ALVAREZ Amiodarone HCl/Dextrose 150 mg 100 mls @ 600 mls/hr 08/11/17 14:30 08/11/17 14:35 / Premix IV 600 mls/hr .BOLUS ALVAREZ Administration Amiodarone HCl/Dextrose 360 mg in 200 mls @ 33.333 mls/hr 08/11/17 14:30 15:20 Nexterone In Dextrose 360 Mg/200 Ml IV 1 mg/min ASDIRECTED ALVAREZ 33.333 mls/hr Protocol Administration 1 MG/MIN Magnesium Sulfate 2 gm/ Premix 50 mls @ 50 mls/hr 08/11/17 15:57 08/11/17 17: 07 IV 08/11/17 16:56 50 mls/hr ONETIME ONE Administration Amiodarone HCl/Dextrose 150 mg 100 mls @ 600 mls/hr 08/11/17 16:12 08/11/17 16:38 / Premix IV 600 mls/hr .BOLUS ALVAREZ Administration Propofol Confirm 08/11/17 17:34 Diprivan 50 Ml Administered 08/11/17 17:35 Dose 50 mls @ as directed .ROUTE .STK-MED ONE Lidocaine Confirm 08/09/17 21:08 08/09/17 21:20 Xylocaine-Mpf 2% Administered 08/09/17 21:09 5 ml Dose Administration 5 ml .ROUTE .STK-MED ONE Methylprednisolone Sodium Succinate 125 mg 08/09/17 16:42 08/09/17 16:58 Solu-Medrol IVPUSH 08/09/17 16:43 125 mg ONETIME ONE Administration Methylprednisolone Sodium Succinate 125 mg 08/11/17 08:42 08/11/17 09:23 Solu-Medrol IVPUSH 08/11/17 08:43 125 mg ONETIME ONE Administration Midazolam HCl Confirm 08/11/17 17:34 Versed 1 Mg/Ml Administered 08/11/17 17:35 Dose 2 mg .ROUTE .STK-MED ONE Morphine Sulfate 2 mg 08/11/17 02:34 08/11/17 02:56 Morphine IVPUSH 2 mg Q2H PRN Administration Pain Ondansetron HCl 4 mg 08/11/17 13:39 Zofran IVPUSH Q6H PRN Nausea/Vomiting Oseltamivir Phosphate 30 mg 08/09/17 18:30 08/11/17 09:23 Oseltamivir Phosphate PO 30 mg BID ALVAREZ Administration Pantoprazole Sodium 40 mg 08/10/17 07:30 08/11/17 06:46 Protonix Iv IVPUSH 40 mg Q24H ALVAREZ Administration Polyethylene Glycol 17 gm 08/10/17 19:19 08/10/17 20:25 Miralax PO 17 gm DAILY PRN Administration Constipation Rocuronium [place] 100 mg 08/11/17 19:29 Zemuron IV 08/11/17 19:30 .STK-MED ONE Succinylcholine Chloride 200 mg 08/11/17 19:29 Quelicin IV 08/11/17 19:30 .STK-MED ONE Vancomycin HCl 1 dose 08/09/17 21:00 Pharmacy To Dose - Vancomycin .XX ASDIRECTED [facility] Departure - Departure Time of Disposition: 05:28 Disposition: Admitted As Inpatient 65 Condition: Poor Clinical Impression: Hypoxia, Influenza - Discharge Information
[2017-08-09] MEDS ORDERED: Sodium Chloride 0.9% 1,000 ML IV SCH (16:45)
[2017-08-09] MEDS ORDERED: Piperacillin/Tazobactam 3.375 GM in Sodium Chloride 0.9% 50 ML IV ONE (17:20)
[2017-08-09] MEDS ORDERED: Levofloxacin/Dextrose 5%-Water 750 MG in Premix Bag 1 BAG IV ONE (18:09)
[2017-08-09] MEDS ORDERED: Albuterol/Ipratropium 3.0-0.5 MG/3 ML Neb Soln NEB PRN (18:11)
--- NOTE | 2017-08-09 18:37 | PCM.HP ---
H&P History of Present Illness - General Date of Service: 08/09/17 Admit Problem/Dx: Admission Diagnosis/Problem Admission Diagnosis/Problem Hypoxia - History of Present Illness Initial Comments - Free Text/Narative: 87-year-old female with an extensive pulmonary and cardiovascular history including congestive heart failure, pulmonary embolism, mesothelioma that presents today with a chief complaint shortness of breath. Patient was seen in the ER yesterday as well and was found to be positive for influenza and was discharged home on Tamiflu. Patient states that rest or status has been worsening since she returns back now for further workup. In the ER, patient found to be hypotensive, tachycardic. Sepsis workup was negative thus far with a negative lactate and no white count. Chest x-ray indicative of a pleural effusion which is chronic for her. ER Course: CBC BMP CXR DuoNeb IV 1L NS Bolus - Related Data Allergies/Adverse Reactions: Allergies Allergy/AdvReac Type Severity Reaction Status Date / Time enalapril Allergy Cough Verified 08/09/17 16:45 Home Medications: Home Meds Acetaminophen [Tylenol Arthritis Pain] 650 mg PO DAILY 08/08/17 [History] Albuterol Sulfate 2.5 mg INH DAILY 08/08/17 [History] Alum Hydrox/Mag Hydrox/Simeth [Mag-Al Plus] 30 ml PO DAILY 08/08/17 [History] Aspirin 325 mg PO DAILY 08/08/17 [History] Calcium Carbonate [Calcium] 500 mg PO DAILY 08/08/17 [History] Famotidine [Pepcid] 20 mg PO DAILY 08/08/17 [History] Furosemide [Lasix] 40 mg PO DAILY 08/08/17 [History] Loperamide [Imodium] 2 mg PO DAILY 08/08/17 [History] Magnesium Oxide 400 mg PO DAILY 08/08/17 [History] Meclizine [Antivert] 12.5 mg PO DAILY 08/08/17 [History] Metoprolol Succinate 50 mg PO DAILY 08/08/17 [History] Potassium Bicarbonate/Cit Ac [Potassium 25 Meq Tablet Eff] 20 meq PO DAILY 08/08 [History] acetaZOLAMIDE [Acetazolamide] 250 mg PO DAILY 08/08/17 [History] Past Medical History HEENT History: Reports: Cataract, Hard of Hearing, Impaired Vision Cardiovascular History: Reports: Other (See Below) Other Cardiovascular History: Hx of CHF and A-fib with 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: Musculoskeletal History: Reports: Other (See Below) Other Musculoskeletal History: recent low back pain; has been seeing a chiropractor Neurological History: Reports: None Psychiatric History: Reports: None Endocrine/Metabolic History: Reports: None Hematologic History: Reports: Anemia Immunologic History: Reports: None Oncologic (Cancer) History: Reports: Other (See Below) Dermatologic History: Reports: None - Infectious Disease History Infectious Disease History: Reports: Chicken Pox, Measles, Mumps - Past Surgical History Head Surgeries/Procedures: Reports: None HEENT Surgical History: Reports: Cataract Surgery Cardiovascular Surgical History: Reports: Valve Replacement GI Surgical History: Reports: None Female Surgical History: Reports: None Neurological Surgical History: Reports: None Musculoskeletal Surgical History: Reports: Knee Replacement, Other (See Below) Oncologic Surgical History: Reports: Mastectomy, Other (See Below) Dermatological Surgical History: Reports: None Social & Family History - Family History Family Medical History: Noncontributory - Tobacco Use Smoking Status *Q: Never Smoker Second Hand Smoke Exposure: No - Caffeine Use Caffeine Use: Reports: Coffee, Soda - Recreational Drug Use Recreational Drug Use: No H&P Review of Systems - Review of Systems: Review Of Systems: See Below General: Denies: Fever, Chills HEENT: Reports: No Symptoms Pulmonary: Reports: Shortness of Breath, Cough, Sputum. Denies: Pleuritic Chest Pain, Hemoptysis Cardiovascular: Reports: Dyspnea on Exertion, Orthopnea, Edema. Denies: Chest Pain, Palpitations Gastrointestinal: Reports: No Symptoms Genitourinary: Reports: No Symptoms Musculoskeletal: Reports: No Symptoms Skin: Reports: No Symptoms Psychiatric: Reports: No Symptoms Neurological: Reports: No Symptoms Hematologic/Lymphatic: Reports: No Symptoms Immunologic: Reports: No Symptoms Exam - Exam Exam: See Below - Vital Signs Vital Signs: Last Vital Signs Temp 36.4 C 08/09/17 16:39 Pulse 72 08/09/17 16:39 Resp 26 H 08/09/17 16:39 BP 83/34 L 08/09/17 16:39 Pulse Ox 91 L 08/09/17 16:39 Weight: 55.5 kg - Exam Quality Assessment: Supplemental Oxygen General: Alert, Oriented HEENT: Conjunctiva Clear, EOMI, Hearing Intact Neck: Supple, Trachea Midline Lungs: Crackles, Other (Increased work of breathing. Bilateral crackles throughout all mosqueda) Cardiovascular: Regular Rate, Regular Rhythm GI/Abdominal Exam: Normal Bowel Sounds, Soft Back Exam: Normal Inspection, Full Range of Motion. No: CVA Tenderness (L), CVA Tenderness (R) Extremities: Normal Inspection, Normal Range of Motion Peripheral Pulses: 3+: Dorsalis Pedis (L), Dorsalis Pedis (R) Skin: Warm Neuro Extensive - Mental Status: Alert, Normal Mood/Affect Psychiatric: Alert, Normal Affect, Normal Mood - Patient Data Result Diagrams: 08/09/17 16:49 08/09/17 16:49 *Q Meaningful Use (ADM) - VTE *Q VTE Criteria *Q: - Stroke *Q Stroke Criteria *Q: - AMI *Q AMI Criteria *Q: Problem List Initiated/Reviewed/Updated: Yes Orders Last 24hrs: Active Orders 24 hr Category Date Time Status Incentive Spirometry [RT Incentive Spirometry] [RC] Care 08/09/17 18:10 Active ASDIRECTED Oxygen Therapy [RC] PRN Care 08/09/17 18:06 Active RT Aerosol Therapy [RC] ASDIRECTED Care 08/09/17 18:11 Active Up ad Arabella [RC] ASDIRECTED Care 08/09/17 18:06 Active VTE/DVT Education [RC] PER UNIT ROUTINE Care 08/09/17 18:06 Active Vital Signs [RC] Q4H Care 08/09/17 18:06 Active Regular Diet [DIET] Diet 08/09/17 Breakfast Active BASIC METABOLIC PANEL,BMP [CHEM] AM Lab 08/10/17 05:11 Ordered CBC WITH AUTO DIFF [HEME] AM Lab 08/10/17 05:11 Ordered Albuterol/Ipratropium [DuoNeb 3.0-0.5 MG/3 ML] Med 08/09/17 18:11 Active 3 ml NEB Q4H PRN Enoxaparin [Lovenox] Med 08/10/17 09:00 Active 30 mg SUBCUT DAILY Levofloxacin/Dextrose 5%-Water [Levaquin in D5W 750 MG/ Med 08/09/17 18:09 Active 150 ML] 750 mg Premix Bag 1 bag IV ONETIME Oseltamivir Phosphate Med 08/09/17 18:30 Active 30 mg PO BID Piperacillin/Tazobactam [Piperacil-Tazobact] 3.375 gm Med 08/09/17 23:00 Active Sodium Chloride 0.9% [Normal Saline] 50 ml IV Q6H Sodium Chloride 0.9% [Normal Saline] 1,000 ml Med 08/09/17 18:15 Active IV ASDIRECTED Resuscitation Status Routine Resus Stat 08/09/17 18:06 Ordered Medication Orders Albuterol/Ipratropium (Duoneb 3.0-0.5 Mg/3 Ml) 3 ml NEB Q4H PRN PRN Reason: Shortness of Breath Enoxaparin Sodium (Lovenox) 30 mg SUBCUT DAILY [facility] Sodium Chloride (Normal Saline) 1,000 mls @ 125 mls/hr IV STAT [facility] Last Admin: 08/09/17 16:58 Dose: 125 mls/hr Levofloxacin/Dextrose 750 mg/ (Premix) 150 mls @ 100 mls/hr IV ONETIME ONE Stop: 08/09/17 19:38 Piperacillin Sod/Tazobactam (Sod 3.375 gm/ Sodium Chloride) 50 mls @ 100 mls/ hr IV Q6H [facility] Sodium Chloride (Normal Saline) 1,000 mls @ 75 mls/hr IV ASDIRECTED [facility] Oseltamivir Phosphate (Oseltamivir Phosphate) 30 mg PO BID [facility] Assessment/Plan Comment:: Assessment: #1. Acute Hypoxic respiratory failure secondary to +influenza with possible superimposed bacterial pneumonia #2. hypotension #3. Mild anemia #4. Elevated BUN #5. History of CHF, Recurrent pleural effusions, PE Plan: #1. Admit to the floor as an inpatient #2. Vital signs per floor. I's and O's per floor. Up ad arabella #3. Lovenox for DVT Prophylaxis #4. Levofloxacin, Zosyn IV #5. Tamiflu PO #6. Resume home medications #7. Incentive spirometry #8. DuoNeb PRN shortness of breath/wheezing #9. IVNS 75ml/hr
[2017-08-09] MEDS: Oseltamivir Phosphate 30 MG Capsule PO SCH ×2 (18:51→19:01)
[2017-08-09] MEDS: Sodium Chloride 0.9% 1,000 ML IV SCH ×2 (18:56→22:15)
[2017-08-09] MEDS ORDERED: Sodium Chloride 0.9% 500 ML IV SCH (19:45)
[2017-08-09] MEDS ORDERED: Lidocaine 2% 5 ML SDV ONE (21:08)
--- NOTE | 2017-08-09 21:52 | PCM.SN ---
- Free Text/Narrative Note: Called for Artline placement. L) radial pulse palpated. Sterile technique 2% lidocaine skin wheel L) wrist. 20 ga arrow cath threaded with ease into L) radial artery. Dressing and secured with tape and L) wrist splint applied. Appropriate waveform noted artline zeroed. No complications
--- NOTE | 2017-08-09 22:05 | PCM.SN ---
- Free Text/Narrative Note: procedure note-- R IJ central line. Consulted by hospitalist. pt with flu, on bipap and falling bps. desire central access for possible vasopressor use. Pt examined. pt positioned. skin prepped. full barrier precautions. time out, us used to locate ijv. ijv entered under direct us visualization. seldinger technique. tripple lumen cvp placed to depth 15 cm and secured with suture. all 3 ports aspitare and flush easily. sterile dressing applied. no complications. cxr has been performed to check catheter position.
[2017-08-09] MEDS: Piperacillin/Tazobactam 3.375 GM in Sodium Chloride 0.9% 50 ML IV SCH (23:44)
[2017-08-10] MEDS: Piperacillin/Tazobactam 3.375 GM in Sodium Chloride 0.9% 50 ML IV SCH ×4 (04:24→22:32)
[2017-08-10] MEDS ORDERED: Magnesium Sulfate/Water 2 GM in Premix Bag 1 BAG IV ONE (07:15)
[2017-08-10] MEDS: Pantoprazole 40 MG Vial IVPUSH SCH (07:38)
[2017-08-10] MEDS: Enoxaparin 30 MG/0.3 ML Syringe SUBCUT SCH (08:22)
[2017-08-10] MEDS: Oseltamivir Phosphate 30 MG Capsule PO SCH ×2 (08:22→20:15)
--- NOTE | 2017-08-10 14:31 | CR ---
EXAM DATE: 08/09/17 PATIENT'S AGE: 87 Patient: SHILA LUQUE Facility: [place], [place] Site . Site : 1930 Study: XRay Chest [id number]/[id number] 5:46:42 PM Ordering Physician: Megan Rice Final Report: INDICATIONS: Pain. Shortness of breath. Cough. TECHNIQUE: Chest 1 view. COMPARISON: 08/08/2017. FINDINGS: Bilateral chest tubes appear unchanged. No pneumothorax. Bilateral pleural effusions persist. The fluid within the fissure on the right has slightly increased. Bibasilar opacities, right greater than left have slightly increased on the right as well. Median sternotomy and valve replacement changes as before. The cardiac and mediastinal contours are otherwise stable. Upper abdomen and osseous structures show no acute abnormality. IMPRESSION: Suspected bibasilar atelectasis has slightly increased on the right. Fluid within the fissure on the right has also slightly increased. Dictated by Kendrick France MD @ 08/09/2017 6:10:06 PM Dictated by: Kendrick France MD @ 08/09/2017 18:10:15 (Electronic Signature) Report Signed by Proxy. FRAN
--- NOTE | 2017-08-10 14:52 | PCM.PN ---
- General Info Date of Service: 08/10/17 Admission Dx/Problem (Free Text): Patient was transferred to the ICU given her hypotensive state. As per the attending physician, the patient was minimally arousable late in the evening, and with that along with her low blood pressures and a low map, central line was placed for Levophed. Patient has been on the event this morning. She is able to conversate and answer questions appropriately however. She denies any specific complaints. She was seen on BiPAP. - Review of Systems General: Reports: Other (Negative review of systems other than history of present illness) - Patient Data Vitals - Most Recent: Last Vital Signs Temp 35.7 C 08/10/17 12:00 Pulse 67 08/09/17 18:30 Resp 18 08/10/17 14:00 BP 116/56 L 08/10/17 14:00 Pulse Ox 97 08/10/17 14:00 Weight - Most Recent: 56.6 kg I&O - Last 24 Hours: Intake & Output 08/09/17 08/10/17 08/10/17 22:59 06:59 14:59 Intake Total 1150 1178 600 Output Total 350 Balance 1150 828 600 Lab Results Last 24 Hours: Laboratory Results - last 24 hr 08/09/17 08/09/17 08/09/17 Range/Units 19:32 20:06 23:35 WBC (4.0-11.0) K/uL RBC (4.30-5.90) M/uL Hgb (12.0-16.0) g/dL Hct (36.0-46.0) % MCV (80.0-98.0) fL MCH (27.0-32.0) pg MCHC (31.0-37.0) g/dL RDW Std Deviation (28.0-62.0) fl RDW Coeff of Shravan (11.0-15.0) % Plt Count (150-400) K/uL MPV (7.40-12.00) fL Add Manual Diff Neutrophils % (Manual) (48.0-80.0) % Band Neutrophils % % Lymphocytes % (Manual) (16.0-40.0) % Monocytes % (Manual) (0.0-15.0) % Nucleated RBC % /100WBC Absolute Seg Neuts (1.4-5.7) Band Neutrophils # Lymphocytes # (Manual) (0.6-2.4) Monocytes # (Manual) (0.0-0.8) Nucleated RBCs # K/uL ABG pH 7.248 L (7.35-7.45) ABG pCO2 58 H (35-45) mmHG ABG pO2 86 (75-100) mmHG ABG HCO3 25 (22-26) mEq/L ABG Total CO2 24.3 ABG Base Excess -2.6 L (-2.0-2.0) Sodium (136-146) mmol/L Potassium (3.5-5.1) mmol/L Chloride (98-110) mmol/L Carbon Dioxide (21-31) mmol/L BUN (6.0-23.0) mg/dL Creatinine (0.6-1.5) mg/dL Est Cr Clr Drug Dosing mL/min Estimated GFR (MDRD) ml/min Glucose (60-110) mg/dL POC Glucose 146 H (60-110) mg/dL Calcium (8.8-10.8) mg/dL Magnesium (1.5-2.3) mEq/L Urine Color YELLOW Urine Appearance SLT CLOUDY Urine pH 5.5 (5.0-8.0) Ur Specific Trout >= 1.030 (1.001-1.035) Urine Protein NEGATIVE (NEGATIVE) mg/dL Urine Glucose (UA) NEGATIVE (NEGATIVE) mg/dL Urine Ketones NEGATIVE (NEGATIVE) mg/dL Urine Occult Blood NEGATIVE (NEGATIVE) Urine Nitrite NEGATIVE (NEGATIVE) Urine Bilirubin NEGATIVE (NEGATIVE) Urine Urobilinogen 0.2 (<2.0) EU/dL Ur Leukocyte Esterase NEGATIVE (NEGATIVE) Urine RBC 0-1 (0-2/HPF) Urine WBC 0-2 (0-5/HPF) Ur Epithelial Cells FEW (NONE-FEW) Amorphous Sediment LIGHT (NEGATIVE) Urine Bacteria FEW (NEGATIVE) 08/10/17 08/10/17 08/10/17 Range/Units 00:00 02:00 03:27 WBC (4.0-11.0) K/uL RBC (4.30-5.90) M/uL Hgb (12.0-16.0) g/dL Hct (36.0-46.0) % MCV (80.0-98.0) fL MCH (27.0-32.0) pg MCHC (31.0-37.0) g/dL RDW Std Deviation (28.0-62.0) fl RDW Coeff of Shravan (11.0-15.0) % Plt Count (150-400) K/uL MPV (7.40-12.00) fL Add Manual Diff Neutrophils % (Manual) (48.0-80.0) % Band Neutrophils % % Lymphocytes % (Manual) (16.0-40.0) % Monocytes % (Manual) (0.0-15.0) % Nucleated RBC % /100WBC Absolute Seg Neuts (1.4-5.7) Band Neutrophils # Lymphocytes # (Manual) (0.6-2.4) Monocytes # (Manual) (0.0-0.8) Nucleated RBCs # K/uL ABG pH 7.197 L* 7.203 L 7.249 L (7.35-7.45) ABG pCO2 63 H 61 H 53 H (35-45) mmHG ABG pO2 100 116 H 94 (75-100) mmHG ABG HCO3 25 24 23 (22-26) mEq/L ABG Total CO2 23.9 23.2 22.4 ABG Base Excess -4.1 L -4.6 L -4.2 L (-2.0-2.0) Sodium (136-146) mmol/L Potassium (3.5-5.1) mmol/L Chloride (98-110) mmol/L Carbon Dioxide (21-31) mmol/L BUN (6.0-23.0) mg/dL Creatinine (0.6-1.5) mg/dL Est Cr Clr Drug Dosing mL/min Estimated GFR (MDRD) ml/min Glucose (60-110) mg/dL POC Glucose (60-110) mg/dL Calcium (8.8-10.8) mg/dL Magnesium (1.5-2.3) mEq/L Urine Color Urine Appearance Urine pH (5.0-8.0) Ur Specific Trout (1.001-1.035) Urine Protein (NEGATIVE) mg/dL Urine Glucose (UA) (NEGATIVE) mg/dL Urine Ketones (NEGATIVE) mg/dL Urine Occult Blood (NEGATIVE) Urine Nitrite (NEGATIVE) Urine Bilirubin (NEGATIVE) Urine Urobilinogen (<2.0) EU/dL Ur Leukocyte Esterase (NEGATIVE) Urine RBC (0-2/HPF) Urine WBC (0-5/HPF) Ur Epithelial Cells (NONE-FEW) Amorphous Sediment (NEGATIVE) Urine Bacteria (NEGATIVE) 08/10/17 08/10/17 08/10/17 Range/Units 05:29 05:29 05:29 WBC 7.89 (4.0-11.0) K/uL RBC 3.93 L (4.30-5.90) M/uL Hgb 10.3 L (12.0-16.0) g/dL Hct 35.0 L (36.0-46.0) % MCV 89.1 (80.0-98.0) fL MCH 26.2 L (27.0-32.0) pg MCHC 29.4 L (31.0-37.0) g/dL RDW Std Deviation 50.4 (28.0-62.0) fl RDW Coeff of Shravan 15 (11.0-15.0) % Plt Count 186 (150-400) K/uL MPV 8.90 (7.40-12.00) fL Add Manual Diff YES Neutrophils % (Manual) 73 (48.0-80.0) % Band Neutrophils % 18 % Lymphocytes % (Manual) 3 L (16.0-40.0) % Monocytes % (Manual) 6 (0.0-15.0) % Nucleated RBC % 0.0 /100WBC Absolute Seg Neuts 5.8 H (1.4-5.7) Band Neutrophils # 1.4 Lymphocytes # (Manual) 0.2 L (0.6-2.4) Monocytes # (Manual) 0.5 (0.0-0.8) Nucleated RBCs # 0 K/uL ABG pH 7.233 L (7.35-7.45) ABG pCO2 57 H (35-45) mmHG ABG pO2 100 (75-100) mmHG ABG HCO3 24 (22-26) mEq/L ABG Total CO2 23.0 ABG Base Excess -4.0 L (-2.0-2.0) Sodium 141 (136-146) mmol/L Potassium 4.2 (3.5-5.1) mmol/L Chloride 112 H (98-110) mmol/L Carbon Dioxide 20 L (21-31) mmol/L BUN 49 H (6.0-23.0) mg/dL Creatinine 0.9 (0.6-1.5) mg/dL Est Cr Clr Drug Dosing 37.58 mL/min Estimated GFR (MDRD) 59.1 ml/min Glucose 157 H (60-110) mg/dL POC Glucose (60-110) mg/dL Calcium 7.4 L (8.8-10.8) mg/dL Magnesium (1.5-2.3) mEq/L Urine Color Urine Appearance Urine pH (5.0-8.0) Ur Specific Trout (1.001-1.035) Urine Protein (NEGATIVE) mg/dL Urine Glucose (UA) (NEGATIVE) mg/dL Urine Ketones (NEGATIVE) mg/dL Urine Occult Blood (NEGATIVE) Urine Nitrite (NEGATIVE) Urine Bilirubin (NEGATIVE) Urine Urobilinogen (<2.0) EU/dL Ur Leukocyte Esterase (NEGATIVE) Urine RBC (0-2/HPF) Urine WBC (0-5/HPF) Ur Epithelial Cells (NONE-FEW) Amorphous Sediment (NEGATIVE) Urine Bacteria (NEGATIVE) 08/10/17 08/10/17 08/10/17 Range/Units 05:29 07:00 10:50 WBC (4.0-11.0) K/uL RBC (4.30-5.90) M/uL Hgb (12.0-16.0) g/dL Hct (36.0-46.0) % MCV (80.0-98.0) fL MCH (27.0-32.0) pg MCHC (31.0-37.0) g/dL RDW Std Deviation (28.0-62.0) fl RDW Coeff of Shravan (11.0-15.0) % Plt Count (150-400) K/uL MPV (7.40-12.00) fL Add Manual Diff Neutrophils % (Manual) (48.0-80.0) % Band Neutrophils % % Lymphocytes % (Manual) (16.0-40.0) % Monocytes % (Manual) (0.0-15.0) % Nucleated RBC % /100WBC Absolute Seg Neuts (1.4-5.7) Band Neutrophils # Lymphocytes # (Manual) (0.6-2.4) Monocytes # (Manual) (0.0-0.8) Nucleated RBCs # K/uL ABG pH 7.253 L 7.180 L* (7.35-7.45) ABG pCO2 54 H 61 H (35-45) mmHG ABG pO2 75 151 H (75-100) mmHG ABG HCO3 24 23 (22-26) mEq/L ABG Total CO2 22.8 22.2 ABG Base Excess -3.8 L -6.0 L (-2.0-2.0) Sodium (136-146) mmol/L Potassium (3.5-5.1) mmol/L Chloride (98-110) mmol/L Carbon Dioxide (21-31) mmol/L BUN (6.0-23.0) mg/dL Creatinine (0.6-1.5) mg/dL Est Cr Clr Drug Dosing mL/min Estimated GFR (MDRD) ml/min Glucose (60-110) mg/dL POC Glucose (60-110) mg/dL Calcium (8.8-10.8) mg/dL Magnesium 1.5 (1.5-2.3) mEq/L Urine Color Urine Appearance Urine pH (5.0-8.0) Ur Specific Trout (1.001-1.035) Urine Protein (NEGATIVE) mg/dL Urine Glucose (UA) (NEGATIVE) mg/dL Urine Ketones (NEGATIVE) mg/dL Urine Occult Blood (NEGATIVE) Urine Nitrite (NEGATIVE) Urine Bilirubin (NEGATIVE) Urine Urobilinogen (<2.0) EU/dL Ur Leukocyte Esterase (NEGATIVE) Urine RBC (0-2/HPF) Urine WBC (0-5/HPF) Ur Epithelial Cells (NONE-FEW) Amorphous Sediment (NEGATIVE) Urine Bacteria (NEGATIVE) Aung Results Last 24 Hours: Microbiology 08/10/17 08:35 Gram Stain - Preliminary Sputum - Expectorated Med Orders - Current: Current Medications Albuterol/Ipratropium (Duoneb 3.0-0.5 Mg/3 Ml) 3 ml NEB Q4H PRN PRN Reason: Shortness of Breath Enoxaparin Sodium (Lovenox) 30 mg SUBCUT DAILY [facility] Last Admin: 08/10/17 08:22 Dose: 30 mg Sodium Chloride (Normal Saline) 1,000 mls @ 125 mls/hr IV STAT [facility] Last Admin: 08/09/17 16:58 Dose: 125 mls/hr Piperacillin Sod/Tazobactam (Sod 3.375 gm/ Sodium Chloride) 50 mls @ 100 mls/ hr IV Q6H [facility] Last Admin: 08/10/17 11:46 Dose: 100 mls/hr Sodium Chloride (Normal Saline) 1,000 mls @ 75 mls/hr IV ASDIRECTED [facility] Last Admin: 08/09/17 22:15 Dose: 75 mls/hr Levofloxacin/Dextrose 750 mg/ (Premix) 150 mls @ 100 mls/hr IV Q48H [facility] Norepinephrine Bitartrate (Norepinephr-0.9% Nacl 4 Mg/250) 4 mg in 250 mls @ 7.5 mls/hr IV TITRATE [facility]; 2 MCG/MIN PRN Reason: Protocol Last Admin: 08/10/17 09:42 Dose: 4 mcg/min, 15 mls/hr Vancomycin HCl 1 gm/ Sodium (Chloride) 250 mls @ 166 mls/hr IV Q12H [facility] Last Admin: 08/10/17 09:01 Dose: 166 mls/hr Oseltamivir Phosphate (Oseltamivir Phosphate) 30 mg PO BID [facility] Last Admin: 08/10/17 08:22 Dose: 30 mg Pantoprazole Sodium (Protonix Iv) 40 mg IVPUSH Q24H [facility] Last Admin: 08/10/17 07:38 Dose: 40 mg Vancomycin HCl (Pharmacy To Dose - Vancomycin) 1 dose .XX ASDIRECTED [facility] Discontinued Medications Albuterol/Ipratropium (Duoneb 3.0-0.5 Mg/3 Ml) 3 ml NEB ONETIME ONE Stop: 08/09/17 16:43 Last Admin: 08/09/17 16:58 Dose: 3 ml Piperacillin Sod/Tazobactam (Sod 3.375 gm/ Sodium Chloride) 50 mls @ 100 mls/ hr IV ONETIME ONE Stop: 08/09/17 17:49 Last Admin: 08/09/17 17:28 Dose: 100 mls/hr Levofloxacin/Dextrose 750 mg/ (Premix) 150 mls @ 100 mls/hr IV ONETIME ONE Stop: 08/09/17 19:38 Last Admin: 08/09/17 18:50 Dose: 100 mls/hr Sodium Chloride (Normal Saline) 500 mls @ 1,000 mls/hr IV .BOLUS [facility] Last Admin: 08/09/17 19:50 Dose: 1,000 mls/hr Magnesium Sulfate 2 gm/ Premix 50 mls @ 25 mls/hr IV ONETIME ONE Stop: 08/10/17 09:14 Last Admin: 08/10/17 07:42 Dose: 25 mls/hr Lidocaine (Xylocaine-Mpf 2%) Confirm Administered Dose 5 ml .ROUTE .STK-MED ONE Stop: 08/09/17 21:09 Last Admin: 08/09/17 21:20 Dose: 5 ml Methylprednisolone Sodium Succinate (Solu-Medrol) 125 mg IVPUSH ONETIME ONE Stop: 08/09/17 16:43 Last Admin: 08/09/17 16:58 Dose: 125 mg - Exam Quality Assessment: Supplemental Oxygen General: Alert, Oriented HEENT: Pupils Equal, Pupils Reactive, EOMI Neck: Supple, No JVD Lungs: Decreased Breath Sounds Cardiovascular: Regular Rate, Regular Rhythm GI/Abdominal Exam: Normal Bowel Sounds, Soft Back Exam: Normal Inspection, Full Range of Motion Extremities: Normal Inspection, Normal Range of Motion, No Pedal Edema Skin: Warm Psy/Mental Status: Alert, Normal Affect, Normal Mood - Problem List Review Problem List Initiated/Reviewed/Updated: Yes - My Orders Last 24 Hours: My Active Orders 08/09/17 18:06 Oxygen Therapy [RC] PRN Up ad Arabella [RC] ASDIRECTED Vital Signs [RC] Q1H Resuscitation Status Routine 08/09/17 18:10 Incentive Spirometry [RT Incentive Spirometry] [RC] ASDIRECTED 08/09/17 18:11 Albuterol/Ipratropium [DuoNeb 3.0-0.5 MG/3 ML] 3 ml NEB Q4H PRN 08/09/17 18:15 Sodium Chloride 0.9% [Normal Saline] 1,000 ml IV ASDIRECTED 08/09/17 18:30 Oseltamivir Phosphate 30 mg PO BID 08/09/17 19:11 Transfer Patient (Change bed) [ADT] Routine 08/09/17 23:00 Piperacillin/Tazobactam [Piperacil-Tazobact] 3.375 gm Sodium Chloride 0.9% [ Normal Saline] 50 ml IV Q6H 08/10/17 07:17 Chest 1V Frontal [CR] Routine 08/10/17 07:30 Pantoprazole [ProTONIX IV] 40 mg IVPUSH Q24H 08/10/17 09:00 Enoxaparin [Lovenox] 30 mg SUBCUT DAILY - Plan Plan:: Assessment: #1. septic shock secondary to influenza with possible superimposed pneumonia #2. hypotension #3. Mild anemia #4. Hypercapnia #5. History of CHF, Recurrent pleural effusions, PE Plan: #1. Wean off the levophed drip as tolerated. Wean off BiPAP as tolerated #2. Continue Tamiflu, levofloxacin, Zosyn #3. Continue IV fluids 4. Pantoprazole for GI prophylaxis 40 mg IV daily
[2017-08-10] MEDS: Sodium Chloride 0.9% 1,000 ML IV SCH (16:10)
--- NOTE | 2017-08-10 16:15 | CR ---
EXAM DATE: 08/09/17 PATIENT'S AGE: 87 Patient: SHILA LUQUE Facility: [place], [place] Site . Site : 1930 Study: XRay Chest [id number]/15/2018 10:00:53 PM Ordering Physician: Anitha Bhatt Final Report: Indication: Line placement Technique: Chest 1 view Comparison: 08/09/2017 at 5:41 p.m. Findings/Impression: A right IJ central catheter with the tip in the region of the SVC. Bilateral chest tubes again seen. Sternotomy sutures and a valvular prosthesis again noted. Persistent cardiomediastinal silhouette. Persistent pleural effusions and bibasilar opacities. Persistent right perihilar ovoid opacities. A new subtle ovoid opacity in the right upper lung suggestive of evolving consolidation. Correlate clinically and followup. No gross pneumothorax seen. Dictated by Amari Sandy MD @ 08/09/2017 10:28:00 PM Dictated by: Amari Sandy MD @ 08/09/2017 22:28:10 (Electronic Signature) Report Signed by Proxy. [facility]
--- NOTE | 2017-08-10 16:49 | CR ---
EXAM DATE: 08/09/17 PATIENT'S AGE: 87 Patient: SHILA LUQUE Facility: [place], [place] Site . Site : 1930 Study: XRay Chest [id number]/16/2018 7:59:47 AM Ordering Physician: Anitha Bhatt Final Report: Indication: Hypoxia Technique: Chest 1 view Comparison: August 09, 2017 Findings/Impression: Cardiovascular and mediastinum: Right IJ central line remains in satisfactory position. Heart size is normal. Improved pulmonary vascular congestion. Lungs and pleural space: Right-sided chest tube is unchanged. Stable bilateral pleural effusions. Large unusual and indeterminate ovoid opacity in the right perihilar region is unchanged. No pneumothorax. Bones and soft tissues: No acute findings. Dictated by Keyon Montiel MD @ 08/10/2017 8:25:24 AM Dictated by: Keyon Montiel MD @ 08/10/2017 08:25:29 (Electronic Signature) Report Signed by Proxy. FRAN
[2017-08-10] MEDS ORDERED: Polyethylene Glycol 3350 Powder 17 GM Packet PO PRN (19:19)
[2017-08-10] MEDS ORDERED: Dicyclomine 10 MG Cap PO ONE (21:00)
[2017-08-11] MEDS ORDERED: Morphine 2 MG/ML Syringe IVPUSH PRN (02:34)
[2017-08-11] MEDS: Piperacillin/Tazobactam 3.375 GM in Sodium Chloride 0.9% 50 ML IV SCH ×3 (04:47→18:16)
[2017-08-11] MEDS: Pantoprazole 40 MG Vial IVPUSH SCH (06:46)
[2017-08-11] MEDS: Sodium Chloride 0.9% 1,000 ML IV SCH (08:40)
[2017-08-11] MEDS ORDERED: methylPREDNISolone Sodium Succinate 125 MG/2 ML SDV IVPUSH ONE (08:42)
[2017-08-11] MEDS: Oseltamivir Phosphate 30 MG Capsule PO SCH (09:23)
[2017-08-11] MEDS: Enoxaparin 30 MG/0.3 ML Syringe SUBCUT SCH (09:24)
--- NOTE | 2017-08-11 11:27 | PCM.PN ---
- General Info Date of Service: 08/11/17 Admission Dx/Problem (Free Text): Patient continues to be on the levophed drip and is now on 7 L oxygen via nasal cannula. Talking to her this morning, she tells me that her breathing has improved. She appears to have a better mental status today. She tells me that she feels as if she has a UTI. Denies any abdominal or flank pain denies any nausea or vomiting. - Review of Systems General: Reports: Other (See history of present illness) - Patient Data Vitals - Most Recent: Last Vital Signs Temp 36.9 C 08/11/17 04:00 Pulse 67 08/09/17 18:30 Resp 20 08/11/17 06:00 BP 112/55 L 08/11/17 06:00 Pulse Ox 93 L 08/11/17 06:00 Weight - Most Recent: 56.6 kg I&O - Last 24 Hours: Intake & Output 08/10/17 08/11/17 08/11/17 22:59 06:59 14:59 Intake Total 1973 1767 Output Total 1350 450 Balance 623 1317 Lab Results Last 24 Hours: Laboratory Results - last 24 hr 08/11/17 08/11/17 08/11/17 Range/Units 05:13 05:13 05:13 WBC 9.48 (4.0-11.0) K/uL RBC 3.80 L (4.30-5.90) M/uL Hgb 9.7 L (12.0-16.0) g/dL Hct 33.4 L (36.0-46.0) % MCV 87.9 (80.0-98.0) fL MCH 25.5 L (27.0-32.0) pg MCHC 29.0 L (31.0-37.0) g/dL RDW Std Deviation 49.7 (28.0-62.0) fl RDW Coeff of Shravan 15 (11.0-15.0) % Plt Count 167 (150-400) K/uL MPV 9.60 (7.40-12.00) fL Neut % (Auto) 92.2 H (48.0-80.0) % Lymph % (Auto) 2.8 L (16.0-40.0) % [place] % (Auto) 5.0 (0.0-15.0) % Eos % (Auto) 0.0 (0.0-7.0) % Baso % (Auto) 0.0 (0.0-1.5) % Neut # (Auto) 8.7 H (1.4-5.7) K/uL Lymph # (Auto) 0.3 L (0.6-2.4) K/uL [place] # (Auto) 0.5 (0.0-0.8) K/uL Eos # (Auto) 0.0 (0.0-0.7) K/uL Baso # (Auto) 0.0 (0.0-0.1) K/uL Nucleated RBC % 0.0 /100WBC Nucleated RBCs # 0 K/uL ABG pH (7.35-7.45) ABG pCO2 (35-45) mmHG ABG pO2 (75-100) mmHG ABG HCO3 (22-26) mEq/L ABG Total CO2 ABG Base Excess (-2.0-2.0) Sodium 139 (136-146) mmol/L Potassium 3.9 (3.5-5.1) mmol/L Chloride 111 H (98-110) mmol/L Carbon Dioxide 20 L (21-31) mmol/L BUN 43 H (6.0-23.0) mg/dL Creatinine 0.9 (0.6-1.5) mg/dL Est Cr Clr Drug Dosing 37.58 mL/min Estimated GFR (MDRD) 59.1 ml/min Glucose 138 H (60-110) mg/dL Calcium 7.3 L (8.8-10.8) mg/dL Magnesium 1.6 (1.5-2.3) mEq/L Vancomycin Trough (5-15) ug/mL 08/11/17 08/11/17 Range/Units 08:10 08:10 WBC (4.0-11.0) K/uL RBC (4.30-5.90) M/uL Hgb (12.0-16.0) g/dL Hct (36.0-46.0) % MCV (80.0-98.0) fL MCH (27.0-32.0) pg MCHC (31.0-37.0) g/dL RDW Std Deviation (28.0-62.0) fl RDW Coeff of Shravan (11.0-15.0) % Plt Count (150-400) K/uL MPV (7.40-12.00) fL Neut % (Auto) (48.0-80.0) % Lymph % (Auto) (16.0-40.0) % [place] % (Auto) (0.0-15.0) % Eos % (Auto) (0.0-7.0) % Baso % (Auto) (0.0-1.5) % Neut # (Auto) (1.4-5.7) K/uL Lymph # (Auto) (0.6-2.4) K/uL [place] # (Auto) (0.0-0.8) K/uL Eos # (Auto) (0.0-0.7) K/uL Baso # (Auto) (0.0-0.1) K/uL Nucleated RBC % /100WBC Nucleated RBCs # K/uL ABG pH 7.223 L (7.35-7.45) ABG pCO2 58 H (35-45) mmHG ABG pO2 63 L (75-100) mmHG ABG HCO3 24 (22-26) mEq/L ABG Total CO2 23.2 ABG Base Excess -4.1 L (-2.0-2.0) Sodium (136-146) mmol/L Potassium (3.5-5.1) mmol/L Chloride (98-110) mmol/L Carbon Dioxide (21-31) mmol/L BUN (6.0-23.0) mg/dL Creatinine (0.6-1.5) mg/dL Est Cr Clr Drug Dosing mL/min Estimated GFR (MDRD) ml/min Glucose (60-110) mg/dL Calcium (8.8-10.8) mg/dL Magnesium (1.5-2.3) mEq/L Vancomycin Trough 19.1 H (5-15) ug/mL Aung Results Last 24 Hours: Microbiology 08/09/17 23:35 Urine Culture - Final Urine, Rivas Cath (Indwelling) No Growth 08/10/17 08:35 Gram Stain - Preliminary Sputum - Expectorated Med Orders - Current: Current Medications Albuterol/Ipratropium (Duoneb 3.0-0.5 Mg/3 Ml) 3 ml NEB Q4H PRN PRN Reason: Shortness of Breath Enoxaparin Sodium (Lovenox) 30 mg SUBCUT DAILY [facility] Last Admin: 08/11/17 09:24 Dose: 30 mg Piperacillin Sod/Tazobactam (Sod 3.375 gm/ Sodium Chloride) 50 mls @ 100 mls/ hr IV Q6H [facility] Last Admin: 08/11/17 04:47 Dose: 100 mls/hr Sodium Chloride (Normal Saline) 1,000 mls @ 75 mls/hr IV ASDIRECTED [facility] Last Admin: 08/11/17 08:40 Dose: 75 mls/hr Levofloxacin/Dextrose 750 mg/ (Premix) 150 mls @ 100 mls/hr IV Q48H [facility] Norepinephrine Bitartrate (Norepinephr-0.9% Nacl 4 Mg/250) 4 mg in 250 mls @ 7.5 mls/hr IV TITRATE [facility]; 2 MCG/MIN PRN Reason: Protocol Last Titration: 08/10/17 21:15 Dose: 1 mcg/min, 3.75 mls/hr Vancomycin HCl 1 gm/ Sodium (Chloride) 250 mls @ 166 mls/hr IV Q12H [facility] Stop: 08/11/17 12:00 Last Admin: 08/11/17 09:24 Dose: 166 mls/hr Vancomycin HCl 1 gm/ Sodium (Chloride) 250 mls @ 166 mls/hr IV Q24H [facility] Morphine Sulfate (Morphine) 2 mg IVPUSH Q2H PRN PRN Reason: Pain Last Admin: 08/11/17 02:56 Dose: 2 mg Oseltamivir Phosphate (Oseltamivir Phosphate) 30 mg PO BID [facility] Last Admin: 08/11/17 09:23 Dose: 30 mg Pantoprazole Sodium (Protonix Iv) 40 mg IVPUSH Q24H [facility] Last Admin: 08/11/17 06:46 Dose: 40 mg Polyethylene Glycol (Miralax) 17 gm PO DAILY PRN PRN Reason: Constipation Last Admin: 08/10/17 20:25 Dose: 17 gm Vancomycin HCl (Pharmacy To Dose - Vancomycin) 1 dose .XX ASDIRECTED [facility] Discontinued Medications Albuterol/Ipratropium (Duoneb 3.0-0.5 Mg/3 Ml) 3 ml NEB ONETIME ONE Stop: 08/09/17 16:43 Last Admin: 08/09/17 16:58 Dose: 3 ml Dicyclomine HCl (Bentyl) 20 mg PO ONETIME ONE Stop: 08/10/17 21:01 Last Admin: 08/10/17 21:11 Dose: 20 mg Sodium Chloride (Normal Saline) 1,000 mls @ 125 mls/hr IV STAT [facility] Last Admin: 08/09/17 16:58 Dose: 125 mls/hr Piperacillin Sod/Tazobactam (Sod 3.375 gm/ Sodium Chloride) 50 mls @ 100 mls/ hr IV ONETIME ONE Stop: 08/09/17 17:49 Last Admin: 08/09/17 17:28 Dose: 100 mls/hr Levofloxacin/Dextrose 750 mg/ (Premix) 150 mls @ 100 mls/hr IV ONETIME ONE Stop: 08/09/17 19:38 Last Admin: 08/09/17 18:50 Dose: 100 mls/hr Sodium Chloride (Normal Saline) 500 mls @ 1,000 mls/hr IV .BOLUS [facility] Last Admin: 08/09/17 19:50 Dose: 1,000 mls/hr Magnesium Sulfate 2 gm/ Premix 50 mls @ 25 mls/hr IV ONETIME ONE Stop: 08/10/17 09:14 Last Admin: 08/10/17 07:42 Dose: 25 mls/hr Lidocaine (Xylocaine-Mpf 2%) Confirm Administered Dose 5 ml .ROUTE .STK-MED ONE Stop: 08/09/17 21:09 Last Admin: 08/09/17 21:20 Dose: 5 ml Methylprednisolone Sodium Succinate (Solu-Medrol) 125 mg IVPUSH ONETIME ONE Stop: 08/09/17 16:43 Last Admin: 08/09/17 16:58 Dose: 125 mg Methylprednisolone Sodium Succinate (Solu-Medrol) 125 mg IVPUSH ONETIME ONE Stop: 08/11/17 08:43 Last Admin: 08/11/17 09:23 Dose: 125 mg - Exam Quality Assessment: Supplemental Oxygen General: Alert, Oriented HEENT: Pupils Equal, Pupils Reactive Neck: Supple Lungs: Clear to Auscultation, Normal Respiratory Effort Cardiovascular: Regular Rate, Regular Rhythm GI/Abdominal Exam: Normal Bowel Sounds, Soft, Non-Tender Extremities: Normal Inspection Peripheral Pulses: 3+: Dorsalis Pedis (L), Dorsalis Pedis (R) Skin: Warm Psy/Mental Status: Alert, Normal Affect, Normal Mood - Problem List Review Problem List Initiated/Reviewed/Updated: Yes - My Orders Last 24 Hours: My Active Orders 08/11/17 07:53 UA W/MICROSCOPIC [URIN] Routine 08/12/17 05:11 BASIC METABOLIC PANEL,BMP [CHEM] AM CBC WITH AUTO DIFF [HEME] AM 08/13/17 05:11 BASIC METABOLIC PANEL,BMP [CHEM] AM CBC WITH AUTO DIFF [HEME] AM - Plan Plan:: Assessment: #1. septic shock secondary to influenza with possible superimposed pneumonia #2. hypotension #3. Mild anemia #4. Hypercapnia #5. Complaining of UTI symptoms Plan: #1. Wean off the levophed drip as tolerated. Wean off BiPAP as tolerated #2. Continue Tamiflu, levofloxacin, Zosyn #3. Continue IV fluids #4. Urinalysis
[2017-08-11] MEDS ORDERED: Ondansetron 4 MG/2 ML SDV IVPUSH PRN (13:39)
[2017-08-11] MEDS ORDERED: Amiodarone In Dextrose,Iso-Osm 150 MG in Premix Bag 1 BAG IV SCH ×4 (14:30→16:12)
[2017-08-11] MEDS ORDERED: Magnesium Sulfate/Water 2 GM in Premix Bag 1 BAG IV ONE (15:57)
[2017-08-11] MEDS ORDERED: Calcium Carbonate 500 MG Tab.Chew PO ONE (16:05)
--- NOTE | 2017-08-11 16:39 | CR ---
EXAMINATION: Portable chest radiograph. HISTORY: Hypoxemia. FINDINGS: The trachea is midline. The cardiac silhouette is not well identified secondary to moderate left pleu ral effusion with adjacent atelectasis. Loculated fluid is noted within the right minor fissure. No p neumothorax. Right sided central line noted. Median sternotomy wires are present. Osseous structures appear osteopenic. IMPRESSION: 1. Moderate left pleural effusion with adjacent atelectasis. 2. Loculated small right pleural effusion.
[2017-08-11] MEDS ORDERED: Midazolam 1 MG/ML 2 ML SDV ONE (17:34)
[2017-08-11] MEDS ORDERED: Levofloxacin/Dextrose 5%-Water 750 MG in Premix Bag 1 BAG IV SCH (18:00)
--- NOTE | 2017-08-11 18:01 | PCM.DCSUM1 ---
Discharge Summary - Hospital Course Free Text/Narrative:: Admission date: August 09, 2016 Discharge date: August 11, 2016 (Transfer to [facility]) Admission Diagnosis: #1. Acute hypercapnic respiratory failure #2. Influenza positive #3. Mild anemia #4. Elevated BUN #5. Hypotension #6. Suspected superimposed bacterial pneumonia #7. History of recurrent pleural effusions, bilateral PE Discharge Diagnosis at the Time of Transfer: #1. Acute hypercapnic respiratory failure s/p intubation #2. Septic Shock #3. Influenza positive with superimposed pneumonia #4. UTI #5. SVT - resolved #6. Asystole s/p intubation - resolved Hospital course: 87F with a significant pulmonary history including bilateral PE, recurrent pleural effusions with intrapleural catheter that presented to the ER on August 07 complaining of SOB. The patient was discharged home after being found influenza + on tamiflu. The patient returned on August 09 with worsening respiratory status and was found to be hypotensive, tachycardic and was ultimately admitted to the ICU for respiratory management and treatment for a clinical suspicion of superimposed pneumonia. She was started on Tamiflu, Levaquin, Zosyn, Vancomycin. Blood cultures x2 at 48hrs have been negative. Gram stain pending. Lactic acid was normal. No leukocytosis on admission and throughout stay. On the morning of the , patient during bedside rounds complained of UTI like symptoms. A UA was positive for UTI. Multiple ABG's indicated hypercapnia despite full measures on BiPAP. Patient was also placed on levophed drip secondary to septic shock, maintaining a MAP in the high 60s on 10mcg/min. At one point, the patient was able to be weaned down to 1mcg/min but this had to be raised again. Given worsening hypercapnia, it was decided to intubate the patient. Patient also had an episode of SVT that responded well to amiodarone. S/p intubation, patient had an episode of asystole that responded to 1mg Atropine. Rhythm appears sinus at the time of transfer. Transfer: [facility] Accepting physician: Dr. Mena - Discharge Data Discharge Date: 08/11/17 Discharge Disposition: DC/Tfer to Acute Hospital 02 Condition: Fair - Discharge Plan Home Medications: Home Meds Acetaminophen [Tylenol Arthritis Pain] 650 mg PO DAILY 08/08/17 [History] Albuterol Sulfate 2.5 mg INH Q6H PRN 08/08/17 [History] Alum Hydrox/Mag Hydrox/Simeth [Mag-Al Plus] 1 - 2 tbsp PO Q4H PRN 08/08/17 [ History] Aspirin 325 mg PO DAILY 08/08/17 [History] Calcium Carbonate [Calcium] 500 mg PO DAILY 08/08/17 [History] Famotidine [Pepcid] 20 mg PO BID 08/08/17 [History] Furosemide [Lasix] 40 mg PO DAILY 08/08/17 [History] Loperamide [Imodium] 2 mg PO DAILY 08/08/17 [History] Magnesium Oxide 400 mg PO BID 08/08/17 [History] Meclizine [Antivert] 12.5 mg PO DAILY 08/08/17 [History] acetaZOLAMIDE [Acetazolamide] 250 mg PO BID 08/08/17 [History] Albuterol Sulfate [Proair Respiclick] 2 puff IH Q6H PRN 08/09/17 [History] Azithromycin [IMW: Azithromycin] 250 mg PO DAILY 08/09/17 [History] Calcium Citrate/Vitamin D3 [Calcium Citrate - Vit D Caplet] 1 each PO DAILY [History] Codeine/Promethazine HCl [Promethazine-Codeine Syrup] 5 - 10 ml PO Q6H PRN 08/09 [History] Dextran 70/Hypromellose/PF [Artificial Tears Drops] 1 each OP Q6H PRN 08/09/17 [ History] Magnesium Hydroxide [Milk of Magnesia] 30 ml PO Q72H PRN 08/09/17 [History] Metoprolol Tartrate 50 mg PO BID 08/09/17 [History] Oseltamivir [Tamiflu] 1 tab PO BID 08/09/17 [History] Potassium Chloride 20 meq PO DAILY 08/09/17 [History] guaiFENesin [Tussin] 1 tsp PO Q4H PRN 08/09/17 [History] Forms: ED Department Discharge Referrals: PCP,None [Primary Care Provider] - - Discharge Summary/Plan Comment Discharge Summary/Plan Comment: Admission date: August 09, 2016 Discharge date: August 11, 2016 (Transfer to [facility]) Admission Diagnosis: #1. Acute hypercapnic respiratory failure #2. Influenza positive #3. Mild anemia #4. Elevated BUN #5. Hypotension #6. Suspected superimposed bacterial pneumonia #7. History of recurrent pleural effusions, bilateral PE Discharge Diagnosis at the Time of Transfer: #1. Acute hypercapnic respiratory failure s/p intubation #2. Septic Shock #3. Influenza positive with superimposed pneumonia #4. UTI #5. SVT - resolved #6. Asystole s/p intubation - resolved Hospital course: 87F with a significant pulmonary history including bilateral PE, recurrent pleural effusions with intrapleural catheter that presented to the ER on August 07 complaining of SOB. The patient was discharged home after being found influenza + on tamiflu. The patient returned on August 09 with worsening respiratory status and was found to be hypotensive, tachycardic and was ultimately admitted to the ICU for respiratory management and treatment for a clinical suspicion of superimposed pneumonia. She was started on Tamiflu, Levaquin, Zosyn, Vancomycin. Blood cultures x2 at 48hrs have been negative. Gram stain pending. Lactic acid was normal. No leukocytosis on admission and throughout stay. On the morning of the , patient during bedside rounds complained of UTI like symptoms. A UA was positive for UTI. Multiple ABG's indicated hypercapnia despite full measures on BiPAP. Patient was also placed on levophed drip secondary to septic shock, maintaining a MAP in the high 60s on 10mcg/min. At one point, the patient was able to be weaned down to 1mcg/min but this had to be raised again. Given worsening hypercapnia, it was decided to intubate the patient. Patient also had an episode of SVT that responded well to amiodarone. S/p intubation, patient had an episode of asystole that responded to 1mg Atropine. Rhythm appears sinus at the time of transfer. Transfer: [facility] Accepting physician: Dr. Mena - Patient Data Vitals - Most Recent: Last Vital Signs Temp 36.4 C 08/11/17 07:00 Pulse 67 08/09/17 18:30 Resp 16 08/11/17 07:00 BP 99/41 L 08/11/17 07:00 Pulse Ox 92 L 08/11/17 07:00 Weight - Most Recent: 56.6 kg I&O - Last 24 hours: Intake & Output 08/11/17 08/11/17 08/11/17 06:59 14:59 22:59 Intake Total 1767 360 Output Total 450 250 Balance 1317 110 Lab Results - Last 24 hrs: Laboratory Results - last 24 hr 08/11/17 08/11/17 08/11/17 Range/Units 05:13 05:13 05:13 WBC 9.48 (4.0-11.0) K/uL RBC 3.80 L (4.30-5.90) M/uL Hgb 9.7 L (12.0-16.0) g/dL Hct 33.4 L (36.0-46.0) % MCV 87.9 (80.0-98.0) fL MCH 25.5 L (27.0-32.0) pg MCHC 29.0 L (31.0-37.0) g/dL RDW Std Deviation 49.7 (28.0-62.0) fl RDW Coeff of Shravan 15 (11.0-15.0) % Plt Count 167 (150-400) K/uL MPV 9.60 (7.40-12.00) fL Neut % (Auto) 92.2 H (48.0-80.0) % Lymph % (Auto) 2.8 L (16.0-40.0) % [place] % (Auto) 5.0 (0.0-15.0) % Eos % (Auto) 0.0 (0.0-7.0) % Baso % (Auto) 0.0 (0.0-1.5) % Neut # (Auto) 8.7 H (1.4-5.7) K/uL Lymph # (Auto) 0.3 L (0.6-2.4) K/uL [place] # (Auto) 0.5 (0.0-0.8) K/uL Eos # (Auto) 0.0 (0.0-0.7) K/uL Baso # (Auto) 0.0 (0.0-0.1) K/uL Nucleated RBC % 0.0 /100WBC Nucleated RBCs # 0 K/uL ABG pH (7.35-7.45) ABG pCO2 (35-45) mmHG ABG pO2 (75-100) mmHG ABG HCO3 (22-26) mEq/L ABG Total CO2 ABG Base Excess (-2.0-2.0) Sodium 139 (136-146) mmol/L Potassium 3.9 (3.5-5.1) mmol/L Chloride 111 H (98-110) mmol/L Carbon Dioxide 20 L (21-31) mmol/L Anion Gap BUN 43 H (6.0-23.0) mg/dL Creatinine 0.9 (0.6-1.5) mg/dL Est Cr Clr Drug Dosing 37.58 mL/min Estimated GFR (MDRD) 59.1 ml/min Glucose 138 H (60-110) mg/dL Calcium 7.3 L (8.8-10.8) mg/dL Magnesium 1.6 (1.5-2.3) mEq/L Urine Color Urine Appearance Urine pH (5.0-8.0) Ur Specific [place] (1.001-1.035) Urine Protein (NEGATIVE) mg/dL Urine Glucose (UA) (NEGATIVE) mg/dL Urine Ketones (NEGATIVE) mg/dL Urine Occult Blood (NEGATIVE) Urine Nitrite (NEGATIVE) Urine Bilirubin (NEGATIVE) Urine Urobilinogen (<2.0) EU/dL Ur Leukocyte Esterase (NEGATIVE) Urine RBC (0-2/HPF) Urine WBC (0-5/HPF) Ur Epithelial Cells (NONE-FEW) Uric Acid Crystals (NEGATIVE) Urine Bacteria (NEGATIVE) Urinalysis Comment Vancomycin Trough (5-15) ug/mL 08/11/17 08/11/17 08/11/17 Range/Units 08:10 08:10 14:55 WBC (4.0-11.0) K/uL RBC (4.30-5.90) M/uL Hgb (12.0-16.0) g/dL Hct (36.0-46.0) % MCV (80.0-98.0) fL MCH (27.0-32.0) pg MCHC (31.0-37.0) g/dL RDW Std Deviation (28.0-62.0) fl RDW Coeff of Shravan (11.0-15.0) % Plt Count (150-400) K/uL MPV (7.40-12.00) fL Neut % (Auto) (48.0-80.0) % Lymph % (Auto) (16.0-40.0) % [place] % (Auto) (0.0-15.0) % Eos % (Auto) (0.0-7.0) % Baso % (Auto) (0.0-1.5) % Neut # (Auto) (1.4-5.7) K/uL Lymph # (Auto) (0.6-2.4) K/uL [place] # (Auto) (0.0-0.8) K/uL Eos # (Auto) (0.0-0.7) K/uL Baso # (Auto) (0.0-0.1) K/uL Nucleated RBC % /100WBC Nucleated RBCs # K/uL ABG pH 7.223 L 7.208 L (7.35-7.45) ABG pCO2 58 H 52 H (35-45) mmHG ABG pO2 63 L 55 L (75-100) mmHG ABG HCO3 24 21 L (22-26) mEq/L ABG Total CO2 23.2 20.1 ABG Base Excess -4.1 L -7.2 L (-2.0-2.0) Sodium (136-146) mmol/L Potassium (3.5-5.1) mmol/L Chloride (98-110) mmol/L Carbon Dioxide (21-31) mmol/L Anion Gap BUN (6.0-23.0) mg/dL Creatinine (0.6-1.5) mg/dL Est Cr Clr Drug Dosing mL/min Estimated GFR (MDRD) ml/min Glucose (60-110) mg/dL Calcium (8.8-10.8) mg/dL Magnesium (1.5-2.3) mEq/L Urine Color Urine Appearance Urine pH (5.0-8.0) Ur Specific [place] (1.001-1.035) Urine Protein (NEGATIVE) mg/dL Urine Glucose (UA) (NEGATIVE) mg/dL Urine Ketones (NEGATIVE) mg/dL Urine Occult Blood (NEGATIVE) Urine Nitrite (NEGATIVE) Urine Bilirubin (NEGATIVE) Urine Urobilinogen (<2.0) EU/dL Ur Leukocyte Esterase (NEGATIVE) Urine RBC (0-2/HPF) Urine WBC (0-5/HPF) Ur Epithelial Cells (NONE-FEW) Uric Acid Crystals (NEGATIVE) Urine Bacteria (NEGATIVE) Urinalysis Comment Vancomycin Trough 19.1 H (5-15) ug/mL 08/11/17 08/11/17 Range/Units 16:08 16:20 WBC (4.0-11.0) K/uL RBC (4.30-5.90) M/uL Hgb (12.0-16.0) g/dL Hct (36.0-46.0) % MCV (80.0-98.0) fL MCH (27.0-32.0) pg MCHC (31.0-37.0) g/dL RDW Std Deviation (28.0-62.0) fl RDW Coeff of Shravan (11.0-15.0) % Plt Count (150-400) K/uL MPV (7.40-12.00) fL Neut % (Auto) (48.0-80.0) % Lymph % (Auto) (16.0-40.0) % [place] % (Auto) (0.0-15.0) % Eos % (Auto) (0.0-7.0) % Baso % (Auto) (0.0-1.5) % Neut # (Auto) (1.4-5.7) K/uL Lymph # (Auto) (0.6-2.4) K/uL [place] # (Auto) (0.0-0.8) K/uL Eos # (Auto) (0.0-0.7) K/uL Baso # (Auto) (0.0-0.1) K/uL Nucleated RBC % /100WBC Nucleated RBCs # K/uL ABG pH (7.35-7.45) ABG pCO2 (35-45) mmHG ABG pO2 (75-100) mmHG ABG HCO3 (22-26) mEq/L ABG Total CO2 ABG Base Excess (-2.0-2.0) Sodium 135 L (136-146) mmol/L Potassium 4.3 (3.5-5.1) mmol/L Chloride 109 (98-110) mmol/L Carbon Dioxide 19 L (21-31) mmol/L Anion Gap 11.3 BUN (6.0-23.0) mg/dL Creatinine (0.6-1.5) mg/dL Est Cr Clr Drug Dosing mL/min Estimated GFR (MDRD) ml/min Glucose (60-110) mg/dL Calcium (8.8-10.8) mg/dL Magnesium (1.5-2.3) mEq/L Urine Color YELLOW Urine Appearance CLOUDY Urine pH 6.0 (5.0-8.0) Ur Specific [place] >= 1.030 (1.001-1.035) Urine Protein 100 (NEGATIVE) mg/dL Urine Glucose (UA) NEGATIVE (NEGATIVE) mg/dL Urine Ketones NEGATIVE (NEGATIVE) mg/dL Urine Occult Blood LARGE H (NEGATIVE) Urine Nitrite NEGATIVE (NEGATIVE) Urine Bilirubin NEGATIVE (NEGATIVE) Urine Urobilinogen 0.2 (<2.0) EU/dL Ur Leukocyte Esterase NEGATIVE (NEGATIVE) Urine RBC 110-120 (0-2/HPF) Urine WBC 5-8 (0-5/HPF) Ur Epithelial Cells OCCASIONAL (NONE-FEW) Uric Acid Crystals MODERATE (NEGATIVE) Urine Bacteria FEW (NEGATIVE) Urinalysis Comment Vancomycin Trough (5-15) ug/mL BRIGITTE Results - Last 24 hrs: Microbiology 08/09/17 23:35 Urine Culture - Final Urine, Rivas Cath ([place]) No Growth Med Orders - Current: Current Medications Albuterol/Ipratropium (Duoneb 3.0-0.5 Mg/3 Ml) 3 ml NEB Q4H PRN PRN Reason: Shortness of Breath Enoxaparin Sodium (Lovenox) 30 mg SUBCUT DAILY ALVAREZ Last Admin: 08/11/17 09:24 Dose: 30 mg Piperacillin Sod/Tazobactam (Sod 3.375 gm/ Sodium Chloride) 50 mls @ 100 mls/ hr IV Q6H ALVAREZ Last Admin: 08/11/17 11:50 Dose: 100 mls/hr Levofloxacin/Dextrose 750 mg/ (Premix) 150 mls @ 100 mls/hr IV Q48H ALVAREZ Norepinephrine Bitartrate (Norepinephr-0.9% Nacl 4 Mg/250) 4 mg in 250 mls @ 7.5 mls/hr IV TITRATE ALVAREZ; 2 MCG/MIN PRN Reason: Protocol Last Titration: 08/11/17 16:54 Dose: 2 mcg/min, 7.5 mls/hr Vancomycin HCl 1 gm/ Sodium (Chloride) 250 mls @ 166 mls/hr IV Q24H ALVAREZ Amiodarone HCl/Dextrose 150 mg (/ Premix) 100 mls @ 600 mls/hr IV .BOLUS ALVAREZ Last Admin: 08/11/17 14:35 Dose: 600 mls/hr Amiodarone HCl/Dextrose (Nexterone In Dextrose 360 Mg/200 Ml) 360 mg in 200 mls @ 33.333 mls/hr IV ASDIRECTED ALVAREZ; 1 MG/MIN PRN Reason: Protocol Last Admin: 08/11/17 15:20 Dose: 1 mg/min, 33.333 mls/hr Amiodarone HCl/Dextrose 150 mg (/ Premix) 100 mls @ 600 mls/hr IV .BOLUS ALVAREZ Last Admin: 08/11/17 16:38 Dose: 600 mls/hr Morphine Sulfate (Morphine) 2 mg IVPUSH Q2H PRN PRN Reason: Pain Last Admin: 08/11/17 02:56 Dose: 2 mg Ondansetron HCl (Zofran) 4 mg IVPUSH Q6H PRN PRN Reason: Nausea/Vomiting Oseltamivir Phosphate (Oseltamivir Phosphate) 30 mg PO BID ALVAREZ Last Admin: 08/11/17 09:23 Dose: 30 mg Pantoprazole Sodium (Protonix Iv) 40 mg IVPUSH Q24H ALVAREZ Last Admin: 08/11/17 06:46 Dose: 40 mg Polyethylene Glycol (Miralax) 17 gm PO DAILY PRN PRN Reason: Constipation Last Admin: 08/10/17 20:25 Dose: 17 gm Vancomycin HCl (Pharmacy To Dose - Vancomycin) 1 dose .XX ASDIRECTED ALVAREZ Discontinued Medications Albuterol/Ipratropium (Duoneb 3.0-0.5 Mg/3 Ml) 3 ml NEB ONETIME ONE Stop: 08/09/17 16:43 Last Admin: 08/09/17 16:58 Dose: 3 ml Calcium Carbonate/Glycine (Tums) 1,000 mg PO ONETIME ONE Stop: 08/11/17 16:06 Last Admin: 08/11/17 17:08 Dose: 1,000 mg Dicyclomine HCl (Bentyl) 20 mg PO ONETIME ONE Stop: 08/10/17 21:01 Last Admin: 08/10/17 21:11 Dose: 20 mg Sodium Chloride (Normal Saline) 1,000 mls @ 125 mls/hr IV STAT ALVAREZ Last Admin: 08/09/17 16:58 Dose: 125 mls/hr Piperacillin Sod/Tazobactam (Sod 3.375 gm/ Sodium Chloride) 50 mls @ 100 mls/ hr IV ONETIME ONE Stop: 08/09/17 17:49 Last Admin: 08/09/17 17:28 Dose: 100 mls/hr Levofloxacin/Dextrose 750 mg/ (Premix) 150 mls @ 100 mls/hr IV ONETIME ONE Stop: 08/09/17 19:38 Last Admin: 08/09/17 18:50 Dose: 100 mls/hr Sodium Chloride (Normal Saline) 1,000 mls @ 75 mls/hr IV ASDIRECTED COUNT INCLUDES THE [facility] Last Admin: 08/11/17 08:40 Dose: 75 mls/hr Sodium Chloride (Normal Saline) 500 mls @ 1,000 mls/hr IV .BOLUS COUNT INCLUDES THE [facility] Last Admin: 08/09/17 19:50 Dose: 1,000 mls/hr Vancomycin HCl 1 gm/ Sodium (Chloride) 250 mls @ 166 mls/hr IV Q12H COUNT INCLUDES THE [facility] Stop: 08/11/17 12:00 Last Admin: 08/11/17 09:24 Dose: 166 mls/hr Magnesium Sulfate 2 gm/ Premix 50 mls @ 25 mls/hr IV ONETIME ONE Stop: 08/10/17 09:14 Last Admin: 08/10/17 07:42 Dose: 25 mls/hr Magnesium Sulfate 2 gm/ Premix 50 mls @ 50 mls/hr IV ONETIME ONE Stop: 08/11/17 16:56 Last Admin: 08/11/17 17:07 Dose: 50 mls/hr Propofol (Diprivan 50 Ml) Confirm Administered Dose 50 mls @ as directed .ROUTE .STK-MED ONE Stop: 08/11/17 17:35 Lidocaine (Xylocaine-Mpf 2%) Confirm Administered Dose 5 ml .ROUTE .STK-MED ONE Stop: 08/09/17 21:09 Last Admin: 08/09/17 21:20 Dose: 5 ml Methylprednisolone Sodium Succinate (Solu-Medrol) 125 mg IVPUSH ONETIME ONE Stop: 08/09/17 16:43 Last Admin: 08/09/17 16:58 Dose: 125 mg Methylprednisolone Sodium Succinate (Solu-Medrol) 125 mg IVPUSH ONETIME ONE Stop: 08/11/17 08:43 Last Admin: 08/11/17 09:23 Dose: 125 mg Midazolam HCl (Versed 1 Mg/Ml) Confirm Administered Dose 2 mg .ROUTE .RUST-MED ONE Stop: 08/11/17 17:35 *Q Meaningful Use (DIS) - VTE *Q VTE Criteria *Q: - Stroke *Q Stroke Criteria *Q: - AMI *Q AMI Criteria *Q:
--- NOTE | 2017-08-11 18:47 | PCM.SN ---
- Free Text/Narrative Note: Called to ICU for intubation. On arrival patient is currently on BiPAP 18/6 FiO2 100% with SpO2 of 90% and PaO2 was in the 50's. Previous anesthesia records were reviewed and the patient was assessed to be a difficulty airway at that time. Glidescope #3 was brought to the bedside. RSI Performed: Pre-intubation VS HR 130's A-Fib with RVR BP - 117/65 (Arterial Line) with Levophed 6mcg/min RR-36 BiPAP 18/6 FiO2 - 100% Versed 2mg IV Etomidate 26mg IV Rocuronium 10mg IV Succinylcholine 100mg IV DL with Glidescope #3, VERY LIMITED mouth opening noted. Glidescope blade barely passed the teeth. Grade II view noted, vocal cords appeared very anterior, bougie was placed, 7.0 ETT was advanced to 22cm at the teeth. +Bilateral breath sounds noted +EtCO2 noted CXR ordered an pending. Additional Rocuronium 40mg IV given for continued relaxation Post-intubation VS HR - 130's BP 102/56 SpO2 99% Vent Settings RR - 10 FiO2 - 100% PIP - 25 Peep - 5 ABG ordered 10 minutes post intubation. Approximately 5 minutes post-intubation, I observed a long pause approximately 6 seconds, and then irregular severe bradycardia 10-20's, patients BP also fell SBP 50-60's, Atropine 1mg IVP given. Over the course of a minute the patient slowly improved to Junctional and then SR at 62. BP also recovered to 106/46. Pt currently stable and flight team is at the bedside for transfer.
[2017-08-11] MEDS ORDERED: Etomidate 2 MG/ML 20 ML SDV IVPUSH ONE (19:29)
[2017-08-11] MEDS ORDERED: Atropine 0.1 MG/ML 10 ML Syringe IV ONE (19:29)
[2017-08-11] MEDS ORDERED: EPINEPHrine 1:10,000 1 MG/10 ML Syringe IV ONE (19:29)
[2017-08-11] MEDS ORDERED: 25% Dextrose in Water 10 ML Syringe IV ONE (19:29)
[2017-08-11] MEDS ORDERED: Rocuronium 100 MG/10 ML MDV IV ONE (19:29)
[2017-08-11] MEDS ORDERED: Succinylcholine 200 MG/10 ML MDV IV ONE (19:29)
[2017-08-11 20:18] VITALS: BP 124/50
--- NOTE | 2017-08-12 16:19 | CR ---
EXAM DATE: 08/09/17 PATIENT'S AGE: 87 Patient: SHILA LUQUE Facility: [place], [place] Site . Site : 1930 Study: XRay Chest [id number] 6:25:03 PM Ordering Physician: Anitha Bhatt Final Report: Post intubation comparison chest x-ray 08/10/2017. Findings : Stable cardiac mediastinal silhouette. Median sternotomy. Right central IJ line unchanged in position. Moderate to large left effusion which is increased. Pulmonary edema stable to mildly increased. Left perihilar and basilar consolidation increased. Right apical chest tube. Two right perihilar rounded opacities unchanged. Smaller oval opacity likely reflects loculated fluid in the minor fissure. Right loculated effusion slightly decreased. No pneumothorax visualized. Impression : 1. No pneumothorax visualized . 2. Pulmonary edema is stable to minimally increased. Increased moderate to large left effusion. Increased left perihilar and basilar consolidation. Dictated by Maritza Rousseau MD @ Aug 11 2017 6:50PM (Electronic Signature) Report Signed by Proxy. [facility]
== END 2017-08-11 19:30 | DRG 871 ==
LOC: MW.ED 16:21 → MW.MS 17:15 → MW.ICU 19:47
PROVIDERS: ADMIT Internal Medicine; ATTEND Internal Medicine
PROC: 05HM33Z Insertion of Infusion Device into Right Internal Jugular Vein, Percutaneous Approach (ICD-10-PCS; 2017-08-09)
PROC: 03HC33Z Insertion of Infusion Device into Left Radial Artery, Percutaneous Approach (ICD-10-PCS; 2017-08-09)
PROC: 0BH17EZ Insertion of Endotracheal Airway into Trachea, Via Natural or Artificial Opening (ICD-10-PCS; principal; 2017-08-11)
DX: R09.02 Hypoxemia (principal); A41.9 Sepsis, unspecified organism; R65.21 Severe sepsis with septic shock; I48.91 Unspecified atrial fibrillation; Z95.2 Presence of prosthetic heart valve; Z88.8 Allergy status to other drugs, medicaments and biological substances; Z79.899 Other long term (current) drug therapy; Z79.82 Long term (current) use of aspirin; J11.00 Influenza due to unidentified influenza virus with unspecified type of pneumonia; N39.0 Urinary tract infection, site not specified; I47.1 Supraventricular tachycardia; I97.121 Postprocedural cardiac arrest following other surgery; Y83.8 Other surgical procedures as the cause of abnormal reaction of the patient, or of later complication, without mention of misadventure at the time of the procedure; I50.9 Heart failure, unspecified; I95.9 Hypotension, unspecified; D64.9 Anemia, unspecified; R79.89 Other specified abnormal findings of blood chemistry; Z86.711 Personal history of pulmonary embolism; Z98.890 Other specified postprocedural states
CPT/HCPCS: 36415; 80048; 83605; 85025; 87040 ×2; 96361; 96375; 99285; J2930; J7040; 36600; 51701; 51702; 71045; 71045-26; 80051; 80202; 81001; 82803; 82962; 83735; 87070; 87086; 87205; 93005; 94002; 94660; 96365; 99284; A9270-GY; C9113; J0171; J0282; J0330; J0461; J1650; J1956; J2270; J2543; J3370; J3475; J7050

== ENCOUNTER 2018-03-04 12:58 | Emergency (ER) | payer MEDICARE, BC ==
[2018-03-04 13:23] VITALS: BP 115/54
--- NOTE | 2018-03-04 13:23 | EDM.PDOC ---
ED HPI GENERAL MEDICAL PROBLEM - General Chief Complaint: Abdominal Pain Stated Complaint: UNK ISSUES Time Seen by Provider: 03/04/18 13:01 Source of Information: Reports: Patient History Limitations: Reports: No Limitations - History of Present Illness INITIAL COMMENTS - FREE TEXT/NARRATIVE: History of present illness: []Patient was brought in from a [facility] concerned that she may have a bowel obstruction. For constipation and has received suppositories, laxatives and stool softeners and now has liquid stool. She does have 4 bowel movements this morning denies any abdominal pain.Review of systems: As per history of present illness and below otherwise all systems reviewed and negative. Past medical history: As per history of present illness and as reviewed below otherwise noncontributory. Surgical history: As per history of present illness and as reviewed below otherwise noncontributory. Social history: No reported history of drug or alcohol abuse. Family history: As per history of present illness and as reviewed below otherwise noncontributory. Physical exam: General: Well developed, well nourished in NAD HEENT: Atraumatic, normocephalic, pupils reactive, negative for conjunctival pallor or scleral icterus, mucous membranes moist, throat clear, neck supple, nontender, trachea midline. Lungs: Clear to auscultation, breath sounds equal bilaterally, chest nontender. Heart: S1S2, regular, negative for clicks, rubs, or JVD. Abdomen: Soft, nondistended, nontender no rebound or guarding . Negative for masses or hepatosplenomegaly. Negative for costovertebral tenderness. Pelvis: Stable nontender. Genitourinary: Deferred. Rectal: Deferred. Extremities: Atraumatic, negative for cords or calf pain. Neurovascular unremarkable. Neuro: Awake, alert, oriented. Cranial nerves II through XII unremarkable. Cerebellum unremarkable. Motor and sensory unremarkable throughout. Exam nonfocal. Skin:warm and dry Diagnostics: acute abdominal series showing normal gas pattern without signs of small bowel obstruction or constipation, CBC normal, chemistry normal, lactate 1 UA negative Therapeutics: IV hydrated here in the ED ED Course: unremarkable Impression: constipation Prescriptions: none Plan: follow-up with primary care return if symptoms worsen or change Definitive disposition and diagnosis as appropriate pending reevaluation and review of above. - Related Data Allergies Allergy/AdvReac Type Severity Reaction Status Date / Time enalapril Allergy Cough Verified 02/25/18 21:56 Home Meds: Home Meds Acetaminophen [Tylenol Arthritis Pain] 650 mg PO Q4H PRN 08/08/17 [History] Albuterol Sulfate 2.5 mg INH Q6H PRN 08/08/17 [History] Aspirin 325 mg PO DAILY 08/08/17 [History] Famotidine [Pepcid] 20 mg PO BID 08/08/17 [History] Furosemide [Lasix] 40 mg PO DAILY 08/08/17 [History] Loperamide [Imodium] 2 mg PO ASDIRECTED PRN 08/08/17 [History] Magnesium Oxide 400 mg PO BID 08/08/17 [History] Meclizine [Antivert] 12.5 mg PO DAILY 08/08/17 [History] acetaZOLAMIDE [Acetazolamide] 250 mg PO BID 08/08/17 [History] Calcium Citrate/Vitamin D3 [Calcium Citrate - Vit D Caplet] 250 - 315 mg PO DAILY 08/09/17 [History] Magnesium Hydroxide [Milk of Magnesia] 30 ml PO Q72H PRN 08/09/17 [History] Metoprolol Tartrate 25 mg PO BID 08/09/17 [History] Potassium Chloride 20 meq PO DAILY 08/09/17 [History] guaiFENesin [Tussin] 1 tsp PO Q4H PRN 08/09/17 [History] Dextran 70/Hypromellose/PF [Artificial Tears Drops] 1 drop EYEBOTH QID 02/25/18 [History] Simethicone [Infants' Gas Relief] 1 - 2 tbsp PO QID PRN 02/25/18 [History] Spironolactone [Aldactone] 25 mg PO DAILY 02/25/18 [History] Past Medical History HEENT History: Reports: Cataract, Hard of Hearing, Impaired Vision Cardiovascular History: Reports: Other (See Below) Other Cardiovascular History: Hx of CHF and A-fib with 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: Reports: Musculoskeletal History: Reports: Other (See Below) Other Musculoskeletal History: recent low back pain; has been seeing a chiropractor Neurological History: Reports: None Psychiatric History: Reports: None Endocrine/Metabolic History: Reports: None Hematologic History: Reports: Anemia Other Hematologic History: Thrombocytopenia Immunologic History: Reports: None Oncologic (Cancer) History: Reports: Other (See Below) Dermatologic History: Reports: None Other Dermatologic History: edema - Infectious Disease History Infectious Disease History: Reports: Chicken Pox, Measles, Mumps - Past Surgical History Head Surgeries/Procedures: Reports: None HEENT Surgical History: Reports: Cataract Surgery Cardiovascular Surgical History: Reports: Valve Replacement GI Surgical History: Reports: None Female Surgical History: Reports: None Neurological Surgical History: Reports: None Musculoskeletal Surgical History: Reports: Knee Replacement, Other (See Below) 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 ED EXAM, GI/ABD - Physical Exam Exam: See Below (See history of present illness) Course - Vital Signs Last Recorded V/S: Last Vital Signs Temp 97.0 F 03/04/18 13:17 Pulse 63 03/04/18 13:17 Resp 18 03/04/18 13:17 BP 115/54 L 03/04/18 13:17 Pulse Ox 95 03/04/18 13:17 - Orders/Labs/Meds Orders: Active Orders 24 hr Category Date Time Status UA W/MICROSCOPIC [URIN] Stat Lab 03/04/18 14:28 Ordered Sodium Chloride 0.9% [Saline Flush] Med 03/04/18 14:27 Active 10 ml FLUSH ASDIRECTED PRN Sodium Chloride 0.9% [Saline Flush] Med 03/04/18 14:27 Active 2.5 ml FLUSH ASDIRECTED PRN Saline Lock Insert [OM.PC] Stat Oth 03/04/18 14:27 Ordered Medication Orders Sodium Chloride (Saline Flush) 10 ml FLUSH ASDIRECTED PRN PRN Reason: Keep Vein Open Sodium Chloride (Saline Flush) 2.5 ml FLUSH ASDIRECTED PRN PRN Reason: Keep Vein Open Labs: Laboratory Tests 0803/04/18 03/04/18 Range/Units 14:28 14:42 14:42 WBC 6.68 (4.0-11.0) K/uL RBC 4.70 (4.30-5.90) M/uL Hgb 13.4 (12.0-16.0) g/dL Hct 41.6 (36.0-46.0) % MCV 88.5 (80.0-98.0) fL MCH 28.5 (27.0-32.0) pg MCHC 32.2 (31.0-37.0) g/dL RDW Std Deviation 55.3 (28.0-62.0) fl RDW Coeff of Shravan 17 H (11.0-15.0) % Plt Count 171 (150-400) K/uL MPV 9.00 (7.40-12.00) fL Neut % (Auto) 72.9 (48.0-80.0) % Lymph % (Auto) 14.4 L (16.0-40.0) % Mobile % (Auto) 10.9 (0.0-15.0) % Eos % (Auto) 1.5 (0.0-7.0) % Baso % (Auto) 0.3 (0.0-1.5) % Neut # (Auto) 4.9 (1.4-5.7) K/uL Lymph # (Auto) 1.0 (0.6-2.4) K/uL Mobile # (Auto) 0.7 (0.0-0.8) K/uL Eos # (Auto) 0.1 (0.0-0.7) K/uL Baso # (Auto) 0.0 (0.0-0.1) K/uL Nucleated RBC % 0.0 /100WBC Nucleated RBCs # 0 K/uL Lactate 1.0 (0.20-2.00) mmol/L Sodium (136-145) mmol/L Potassium (3.5-5.1) mmol/L Chloride (98-107) mmol/L Carbon Dioxide (21.0-32.0) mmol/L BUN (7.0-18.0) mg/dL Creatinine (0.6-1.0) mg/dL Est Cr Clr Drug Dosing mL/min Estimated GFR (MDRD) ml/min Glucose (74-106) mg/dL Calcium (8.5-10.1) mg/dL Total Bilirubin (0.2-1.0) mg/dL AST (15-37) IU/L ALT (14-63) IU/L Alkaline Phosphatase (46-116) U/L Total Protein (6.4-8.2) g/dL Albumin (3.4-5.0) g/dL Globulin (2.0-3.5) g/dL Albumin/Globulin Ratio (1.3-2.8) Lipase (73-393) U/L Urine Color YELLOW Urine Appearance CLEAR Urine pH 7.5 (5.0-8.0) Ur Specific [place] 1.015 (1.001-1.035) Urine Protein NEGATIVE (NEGATIVE) mg/dL Urine Glucose (UA) NEGATIVE (NEGATIVE) mg/dL Urine Ketones NEGATIVE (NEGATIVE) mg/dL Urine Occult Blood NEGATIVE (NEGATIVE) Urine Nitrite NEGATIVE (NEGATIVE) Urine Bilirubin NEGATIVE (NEGATIVE) Urine Urobilinogen 0.2 (<2.0) EU/dL Ur Leukocyte Esterase SMALL (NEGATIVE) Urine RBC 0-1 (0-2/HPF) Urine WBC 0-2 (0-5/HPF) Ur Epithelial Cells FEW (NONE-FEW) Urine Bacteria FEW (NEGATIVE) Urinalysis Comment 03/04/18 Range/Units 14:42 WBC (4.0-11.0) K/uL RBC (4.30-5.90) M/uL Hgb (12.0-16.0) g/dL Hct (36.0-46.0) % MCV (80.0-98.0) fL MCH (27.0-32.0) pg MCHC (31.0-37.0) g/dL RDW Std Deviation (28.0-62.0) fl RDW Coeff of Shravan (11.0-15.0) % Plt Count (150-400) K/uL MPV (7.40-12.00) fL Neut % (Auto) (48.0-80.0) % Lymph % (Auto) (16.0-40.0) % Mobile % (Auto) (0.0-15.0) % Eos % (Auto) (0.0-7.0) % Baso % (Auto) (0.0-1.5) % Neut # (Auto) (1.4-5.7) K/uL Lymph # (Auto) (0.6-2.4) K/uL Mobile # (Auto) (0.0-0.8) K/uL Eos # (Auto) (0.0-0.7) K/uL Baso # (Auto) (0.0-0.1) K/uL Nucleated RBC % /100WBC Nucleated RBCs # K/uL Lactate (0.20-2.00) mmol/L Sodium 133 L (136-145) mmol/L Potassium 4.7 (3.5-5.1) mmol/L Chloride 99 (98-107) mmol/L Carbon Dioxide 28.4 (21.0-32.0) mmol/L BUN 38 H (7.0-18.0) mg/dL Creatinine 1.5 H (0.6-1.0) mg/dL Est Cr Clr Drug Dosing 21.12 mL/min Estimated GFR (MDRD) 32.7 ml/min Glucose 99 (74-106) mg/dL Calcium 8.4 L (8.5-10.1) mg/dL Total Bilirubin 0.2 (0.2-1.0) mg/dL AST 32 (15-37) IU/L ALT 25 (14-63) IU/L Alkaline Phosphatase 103 (46-116) U/L Total Protein 6.7 (6.4-8.2) g/dL Albumin 2.5 L (3.4-5.0) g/dL Globulin 4.2 H (2.0-3.5) g/dL Albumin/Globulin Ratio 0.6 L (1.3-2.8) Lipase 221 (73-393) U/L Urine Color Urine Appearance Urine pH (5.0-8.0) Ur Specific [place] (1.001-1.035) Urine Protein (NEGATIVE) mg/dL Urine Glucose (UA) (NEGATIVE) mg/dL Urine Ketones (NEGATIVE) mg/dL Urine Occult Blood (NEGATIVE) Urine Nitrite (NEGATIVE) Urine Bilirubin (NEGATIVE) Urine Urobilinogen (<2.0) EU/dL Ur Leukocyte Esterase (NEGATIVE) Urine RBC (0-2/HPF) Urine WBC (0-5/HPF) Ur Epithelial Cells (NONE-FEW) Urine Bacteria (NEGATIVE) Urinalysis Comment Meds: Medications Generic Name Dose Route Start Last Admin Trade Name Freq PRN Reason Stop Dose Admin Sodium Chloride 10 ml 03/04/18 14:27 Saline Flush FLUSH ASDIRECTED PRN Keep Vein Open Sodium Chloride 2.5 ml 03/04/18 14:27 Saline Flush FLUSH ASDIRECTED PRN Keep Vein Open Discontinued Medications Generic Name Dose Route Start Last Admin Trade Name Freq PRN Reason Stop Dose Admin Sodium Chloride 1,000 mls @ 999 mls/hr 03/04/18 14:27 03/04/18 14:44 Normal Saline IV 03/04/18 15:27 999 mls/hr .Bolus ONE Administration Departure - Departure Time of Disposition: 15:41 Disposition: Home, Self-Care 01 Condition: Good Clinical Impression: Encounter for medical screening examination, History of constipation - Discharge Information *PRESCRIPTION DRUG MONITORING PROGRAM REVIEWED*: No Referrals: Naeem Corado MD [Primary Care Provider] - Forms: ED Department Discharge Additional Instructions: The following information is given to patients seen in the emergency department who are being discharged to home. This information is to outline your options for follow-up care. We provide all patients seen in our emergency department with a follow-up referral. The need for follow-up, as well as the timing and circumstances, are variable depending upon the specifics of your emergency department visit. If you don't have a primary care physician on staff, we will provide you with a referral. We always advise you to contact your personal physician following an emergency department visit to inform them of the circumstance of the visit and for follow-up with them and/or the need for any referrals to a consulting specialist. The emergency department will also refer you to a specialist when appropriate. This referral assures that you have the opportunity for follow-up care with a specialist. All of these measure are taken in an effort to provide you with optimal care, which includes your follow-up. Under all circumstances we always encourage you to contact your private physician who remains a resource for coordinating your care. When calling for follow-up care, please make the office aware that this follow-up is from your recent emergency room visit. If for any reason you are refused follow-up, please contact the [facility] Emergency Department at and asked to speak to the emergency department charge nurse. Increase fluids, encourage ambulation, follow-up with primary care return if symptoms worsen or change. [facility] [address] [place] [id number] - My Orders Last 24 Hours: My Active Orders 03/04/18 14:27 Sodium Chloride 0.9% [Saline Flush] 10 ml FLUSH ASDIRECTED PRN Sodium Chloride 0.9% [Saline Flush] 2.5 ml FLUSH ASDIRECTED PRN Saline Lock Insert [OM.PC] Stat 03/04/18 14:28 UA W/MICROSCOPIC [URIN] Stat - Assessment/Plan Last 24 Hours: My Active Orders 03/04/18 14:27 Sodium Chloride 0.9% [Saline Flush] 10 ml FLUSH ASDIRECTED PRN Sodium Chloride 0.9% [Saline Flush] 2.5 ml FLUSH ASDIRECTED PRN Saline Lock Insert [OM.PC] Stat 03/04/18 14:28 UA W/MICROSCOPIC [URIN] Stat
[2018-03-04] MEDS ORDERED: Sodium Chloride 0.9% 1,000 ML IV ONE (14:27)
[2018-03-04] MEDS ORDERED: Sodium Chloride 0.9% 2.5 ML Syringe FLUSH PRN (14:27)
[2018-03-04] MEDS ORDERED: Sodium Chloride 0.9% 10 ML Syringe FLUSH PRN (14:27)
--- NOTE | 2018-03-04 14:39 | CR ---
EXAMINATION: Abdomen HISTORY: Constipation COMPARISON: CT dated 02/25/2018. TECHNIQUE: AP and upright views FINDINGS: There is no free air under the diaphragm. Bilateral chest tubes are noted with small bilate ral pleural effusions. There is a nonspecific bowel gas pattern. No abnormal calcifications project o teja the kidneys. Osseous structures appear osteopenic. No organomegaly. IMPRESSION: 1. Small bilateral pleural effusions with bilateral chest tubes in place. 2. No evidence of constipation otherwise nonspecific bowel gas pattern.
== END 2018-03-04 16:09 | disposition home or self-care (01) ==
LOC: MW.ED 12:58
DX: K59.00 Constipation, unspecified (principal); Z88.8 Allergy status to other drugs, medicaments and biological substances; Z79.82 Long term (current) use of aspirin; Z79.899 Other long term (current) drug therapy
CPT/HCPCS: 36415; 74018; 80053; 81001; 83605; 83690; 85025; 96360; 99284; J7040

== ENCOUNTER 2018-03-15 17:08 | Emergency (ER) | payer MEDICARE, BC ==
--- NOTE | 2018-03-15 17:13 | EDM.PDOC ---
ED HPI GENERAL MEDICAL PROBLEM - General Stated Complaint: PT FELL AND HURT HEAD Time Seen by Provider: 03/15/18 17:10 - History of Present Illness INITIAL COMMENTS - FREE TEXT/NARRATIVE: HISTORY AND PHYSICAL: History of present illness: The patient is an 88-year-old female who presents via EMS and who is a resident of [facility] but was visiting her son when she was seated on her multiple walker and fell backwards with a walker striking the back of her head. The patient only fell from a very small position, the sitting position, and did not pass out or blackout. She complained initially of pain to the back of her head which is now improved and she is not dizzy or lightheaded and has had no nausea or vomiting she has no complaints of neck or back pain and no extremity complaints. Prior to these events she was in her usual state of good health and had no systemic complaints. She had no preceding dizziness lightheadedness fever chills chest pain or shortness of breath. She normally today. Case was called as a trauma alert as it was a simple fall in an elderly person who is on blood thinners, aspirin 325 mg daily. Currently the patient has no complaints of dizziness nausea or headache and says she only has some slight discomfort at the back of her head where there is swelling. Review of systems: As per history of present illness and below otherwise all systems reviewed and negative. Past medical history: As per history of present illness and as reviewed below otherwise noncontributory. Surgical history: As per history of present illness and as reviewed below otherwise noncontributory. Social history: No reported history of drug or alcohol abuse. Family history: As per history of present illness and as reviewed below otherwise noncontributory. Physical exam: General: Well-developed thin frail female who is nontoxic and answering questions but is hard of hearing. Sissy HEENT: Atraumatic with no palpable bony deformities and there is some soft tissue swelling seen at the occipital area with tenderness but no open wounds are seen, normocephalic, pupils reactive, negative for conjunctival pallor or scleral icterus, mucous membranes moist, throat clear, neck supple, nontender, trachea midline. Neuro no midline step-offs tenderness defects of the cervical spine and there is some mild discomfort at the lower cervical spine area without any soft tissue injuries swelling or ecchymosis. Lungs: Clear to auscultation, breath sounds equal bilaterally, chest nontender. There are dressings seen at the inferior aspect of the chest wall laterally bilaterally which the patient says is not new or different and she has "tubes" in place. Heart: S1S2, regular rate and rhythm and a systolic ejection murmur is appreciated at the left sternal border Abdomen: Soft, nondistended, nontender. Negative for masses or hepatosplenomegaly. Negative for costovertebral tenderness. Pelvis: Stable nontender. No lateral hip tenderness on palpation Genitourinary: Deferred. Rectal: Deferred. Extremities: Atraumatic, negative for cords or calf pain. Neurovascular unremarkable. Patient has full range of motion of all extremities and has no bony tenderness defects or deformities and no soft tissue swelling is appreciated Neuro: Awake, alert, oriented. Cranial nerves II through XII unremarkable. Cerebellum unremarkable. Motor and sensory unremarkable throughout. Exam nonfocal. Back: The patient has kyphosis of the thoracic spine and there are no midline step-offs or defects of the thoracic or lumbar spine no posterior rib or posterior pelvis tenderness and no visible evidence of soft tissue injury including abrasions ecchymosis or lacerations. Diagnostics: EKG UA CBC CMP INR CT scan of the head and C-spine Therapeutics: Tylenol ice pack to contusion on scalp Please note that this case was called as a trauma alert due to the age and anticoagulation therapy and Dr. Colon who is our trauma surgeon performance solutions specialist will be involved as needed and indicated per those testing results Family is here at bedside and states that she does have bilateral chest tubes which are chronic in place and are drained at [facility] 3 times a week. They were informed that they were seen on the CT scan of the neck and they said there is nothing new or different concerning that. The patient does not feel short of breath but is now stating that she has some anterior bilateral chest wall discomfort that feels like a pulled muscle. She has no bony tenderness and on palpation there are no defects or deformities of the chest wall and no crepitus. I offered a chest x-ray which the patient declines at this time. She and family are aware of the UTI on the UA and that a urine culture will be sent. Family says she was recently treated for UTI with Dr. Corado but they're unsure of what antibiotic she was on and when she completed that. I will give her a prescription and have advised her and the family to discuss with [facility] and Dr. Corado tomorrow and further changes in his care plan. Impression: Closed head injury with scalp contusion status post fall; UTI Definitive disposition and diagnosis as appropriate pending reevaluation and review of above. - Related Data Allergies Allergy/AdvReac Type Severity Reaction Status Date / Time enalapril Allergy Cough Verified 03/15/18 17:13 Home Meds: Home Meds Acetaminophen [Tylenol Arthritis Pain] 650 mg PO Q4H PRN 08/08/17 [History] Albuterol Sulfate 2.5 mg INH Q6H PRN 08/08/17 [History] Aspirin 325 mg PO DAILY 08/08/17 [History] Famotidine [Pepcid] 20 mg PO BID 08/08/17 [History] Furosemide [Lasix] 40 mg PO DAILY 08/08/17 [History] Loperamide [Imodium] 2 mg PO QID PRN 08/08/17 [History] Magnesium Oxide 400 mg PO BID 08/08/17 [History] Meclizine [Antivert] 12.5 mg PO DAILY 08/08/17 [History] acetaZOLAMIDE [Acetazolamide] 250 mg PO BID 08/08/17 [History] Calcium Citrate/Vitamin D3 [Calcium Citrate - Vit D Caplet] 250 - 315 mg PO DAILY 08/09/17 [History] Magnesium Hydroxide [Milk of Magnesia] 30 ml PO Q72H PRN 08/09/17 [History] Metoprolol Tartrate 25 mg PO BID 08/09/17 [History] Potassium Chloride 20 meq PO DAILY 08/09/17 [History] guaiFENesin [Tussin] 1 tsp PO Q4H PRN 08/09/17 [History] Dextran 70/Hypromellose/PF [Artificial Tears Drops] 1 drop EYEBOTH QID 02/25/18 [History] Spironolactone [Aldactone] 25 mg PO DAILY 02/25/18 [History] Calcitonin (Wing) [Miacalcin Nasal [place]] 1 spray NASLF Q2D 03/15/18 [History] Calcitonin (Wing) [Miacalcin Nasal [place]] 1 spray NASRT Q2D 03/15/18 [History] Cholecalciferol (Vitamin D3) [Vitamin D3] 2,000 unit PO DAILY 03/15/18 [History] Ergocalciferol (Vitamin D2) [Vitamin D2] 50,000 unit PO TU 03/15/18 [History] Loperamide [Imodium] 4 mg PO ONETIME PRN 03/15/18 [History] Mag Hydrox/Al Hydrox/Simeth [Maalox Maximum Strength Susp] 15 - 30 ml PO QID PRN 03/15/18 [History] Polyethylene Glycol 3350 [MiraLAX] 17 gm PO BID 03/15/18 [History] Past Medical History HEENT History: Reports: Cataract, Hard of Hearing, Impaired Vision Cardiovascular History: Reports: Other (See Below) Other Cardiovascular History: Hx of CHF and A-fib with 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 Stable since Respiratory History: Reports: None Other Respiratory History: Bilateral Pleuravacs that are drained (Right every 3 days; about 1 Liter) (left every 12 days- approx 500ml every 12 days) Gastrointestinal History: Reports: None Genitourinary History: Reports: None CREATIVE INTERN History: Reports: Musculoskeletal History: Reports: Other (See Below) Other Musculoskeletal History: recent low back pain; has been seeing a chiropractor Neurological History: Reports: None Psychiatric History: Reports: None Endocrine/Metabolic History: Reports: None Hematologic History: Reports: Anemia Other Hematologic History: Thrombocytopenia Immunologic History: Reports: None Oncologic (Cancer) History: Reports: Other (See Below) Dermatologic History: Reports: None Other Dermatologic History: edema - Infectious Disease History Infectious Disease History: Reports: Chicken Pox, Measles, Mumps - Past Surgical History Head Surgeries/Procedures: Reports: None HEENT Surgical History: Reports: Cataract Surgery Cardiovascular Surgical History: Reports: Valve Replacement GI Surgical History: Reports: None Female Surgical History: Reports: None Neurological Surgical History: Reports: None Musculoskeletal Surgical History: Reports: Knee Replacement, Other (See Below) 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 ED EXAM, GENERAL - Physical Exam Exam: See Below (See dictation) Course - Vital Signs Last Recorded V/S: Last Vital Signs Temp 36.9 C 08/21/18 17:21 Pulse 83 03/15/18 17:21 Resp 18 03/15/18 17:21 BP 136/77 03/15/18 17:21 Pulse Ox 91 L 03/15/18 17:21 - Orders/Labs/Meds Orders: Active Orders 24 hr Category Date Time Status EKG Documentation Completion [RC] STAT Care 03/15/18 17:11 Active Cervical Spine wo Cont [CT] Stat Exams 03/15/18 17:12 Taken Head wo Cont [CT] Stat Exams 03/15/18 17:12 Taken CULTURE URINE [RM] Stat Lab 03/15/18 18:05 Received UA W/MICROSCOPIC [URIN] Stat Lab 03/15/18 17:12 Ordered Labs: Laboratory Tests 03/15/18 03/15/18 03/15/18 Range/Units 17:12 17:40 17:40 WBC 8.66 (4.0-11.0) K/uL RBC 4.64 (4.30-5.90) M/uL Hgb 13.1 (12.0-16.0) g/dL Hct 41.9 (36.0-46.0) % MCV 90.3 (80.0-98.0) fL MCH 28.2 (27.0-32.0) pg MCHC 31.3 (31.0-37.0) g/dL RDW Std Deviation 54.4 (28.0-62.0) fl RDW Coeff of Shravan 16 H (11.0-15.0) % Plt Count 153 (150-400) K/uL MPV 9.30 (7.40-12.00) fL Add Manual Diff YES Neutrophils % (Manual) 90 H (48.0-80.0) % Band Neutrophils % 3 % Lymphocytes % (Manual) 5 L (16.0-40.0) % Monocytes % (Manual) 1 (0.0-15.0) % Eosinophils % (Manual) 1 (0.0-7.0) % Nucleated RBC % 0.0 /100WBC Absolute Seg Neuts 7.8 H (1.4-5.7) Band Neutrophils # 0.3 Lymphocytes # (Manual) 0.4 L (0.6-2.4) Monocytes # (Manual) 0.1 (0.0-0.8) Eosinophils # (Manual) 0.1 (0.0-0.7) Nucleated RBCs # 0 K/uL INR 0.96 Sodium (136-145) mmol/L Potassium (3.5-5.1) mmol/L Chloride (98-107) mmol/L Carbon Dioxide (21.0-32.0) mmol/L BUN (7.0-18.0) mg/dL Creatinine (0.6-1.0) mg/dL Est Cr Clr Drug Dosing Estimated GFR (MDRD) ml/min Glucose (74-106) mg/dL Calcium (8.5-10.1) mg/dL Total Bilirubin (0.2-1.0) mg/dL AST (15-37) IU/L ALT (14-63) IU/L Alkaline Phosphatase (46-116) U/L Total Protein (6.4-8.2) g/dL Albumin (3.4-5.0) g/dL Globulin (2.0-3.5) g/dL Albumin/Globulin Ratio (1.3-2.8) Urine Color YELLOW Urine Appearance CLEAR Urine pH 6.5 (5.0-8.0) Ur Specific [place] 1.010 (1.001-1.035) Urine Protein NEGATIVE (NEGATIVE) mg/dL Urine Glucose (UA) NEGATIVE (NEGATIVE) mg/dL Urine Ketones NEGATIVE (NEGATIVE) mg/dL Urine Occult Blood NEGATIVE (NEGATIVE) Urine Nitrite NEGATIVE (NEGATIVE) Urine Bilirubin NEGATIVE (NEGATIVE) Urine Urobilinogen 0.2 (<2.0) EU/dL Ur Leukocyte Esterase MODERATE (NEGATIVE) Urine RBC 0-2 (0-2/HPF) Urine WBC 30-35 (0-5/HPF) Ur Epithelial Cells FEW (NONE-FEW) Urine Bacteria FEW (NEGATIVE) 03/15/18 Range/Units 17:40 WBC (4.0-11.0) K/uL RBC (4.30-5.90) M/uL Hgb (12.0-16.0) g/dL Hct (36.0-46.0) % MCV (80.0-98.0) fL MCH (27.0-32.0) pg MCHC (31.0-37.0) g/dL RDW Std Deviation (28.0-62.0) fl RDW Coeff of Shravan (11.0-15.0) % Plt Count (150-400) K/uL MPV (7.40-12.00) fL Add Manual Diff Neutrophils % (Manual) (48.0-80.0) % Band Neutrophils % % Lymphocytes % (Manual) (16.0-40.0) % Monocytes % (Manual) (0.0-15.0) % Eosinophils % (Manual) (0.0-7.0) % Nucleated RBC % /100WBC Absolute Seg Neuts (1.4-5.7) Band Neutrophils # Lymphocytes # (Manual) (0.6-2.4) Monocytes # (Manual) (0.0-0.8) Eosinophils # (Manual) (0.0-0.7) Nucleated RBCs # K/uL INR Sodium 135 L (136-145) mmol/L Potassium 4.6 (3.5-5.1) mmol/L Chloride 101 (98-107) mmol/L Carbon Dioxide 28.4 (21.0-32.0) mmol/L BUN 35 H (7.0-18.0) mg/dL Creatinine 1.0 (0.6-1.0) mg/dL Est Cr Clr Drug Dosing TNP Estimated GFR (MDRD) 52.2 ml/min Glucose 133 H (74-106) mg/dL Calcium 9.0 (8.5-10.1) mg/dL Total Bilirubin 0.2 (0.2-1.0) mg/dL AST 46 H (15-37) IU/L ALT 35 (14-63) IU/L Alkaline Phosphatase 149 H (46-116) U/L Total Protein 6.9 (6.4-8.2) g/dL Albumin 2.5 L (3.4-5.0) g/dL Globulin 4.4 H (2.0-3.5) g/dL Albumin/Globulin Ratio 0.6 L (1.3-2.8) Urine Color Urine Appearance Urine pH (5.0-8.0) Ur Specific [place] (1.001-1.035) Urine Protein (NEGATIVE) mg/dL Urine Glucose (UA) (NEGATIVE) mg/dL Urine Ketones (NEGATIVE) mg/dL Urine Occult Blood (NEGATIVE) Urine Nitrite (NEGATIVE) Urine Bilirubin (NEGATIVE) Urine Urobilinogen (<2.0) EU/dL Ur Leukocyte Esterase (NEGATIVE) Urine RBC (0-2/HPF) Urine WBC (0-5/HPF) Ur Epithelial Cells (NONE-FEW) Urine Bacteria (NEGATIVE) Meds: Medications Discontinued Medications Generic Name Dose Route Start Last Admin Trade Name Musa PRN Reason Stop Dose Admin Acetaminophen 500 mg 03/15/18 18:14 03/15/18 18:22 Tylenol Extra Strength PO 03/15/18 18:15 500 mg ONETIME ONE Administration Departure - Departure Time of Disposition: 18:46 Disposition: Home, Self-Care 01 Condition: Good Clinical Impression: Closed head injury Qualifiers: Encounter type: initial encounter Qualified Code(s): S09.90XA - Unspecified injury of head, initial encounter Scalp contusion Qualifiers: Encounter type: initial encounter Qualified Code(s): S00.03XA - Contusion of scalp, initial encounter UTI (urinary tract infection) Qualifiers: Urinary tract infection type: site unspecified Hematuria presence: without hematuria Qualified Code(s): N39.0 - Urinary tract infection, site not specified - Discharge Information Referrals: PCP,None [Primary Care Provider] - Additional Instructions: The following information is given to patients seen in the emergency department who are being discharged to home. This information is to outline your options for follow-up care. We provide all patients seen in our emergency department with a follow-up referral. The need for follow-up, as well as the timing and circumstances, are variable depending upon the specifics of your emergency department visit. If you don't have a primary care physician on staff, we will provide you with a referral. We always advise you to contact your personal physician following an emergency department visit to inform them of the circumstance of the visit and for follow-up with them and/or the need for any referrals to a consulting specialist. The emergency department will also refer you to a specialist when appropriate. This referral assures that you have the opportunity for followup care with a specialist. All of these measure are taken in an effort to provide you with optimal care, which includes your followup. Under all circumstances we always encourage you to contact your private physician who remains a resource for coordinating your care. When calling for followup care, please make the office aware that this follow-up is from your recent emergency room visit. If for any reason you are refused follow-up, please contact the [facility] emergency department at and ask to speak to the emergency department charge nurse. KEMAL [facility]- Internal Medicine and Family [facility] [address] [place] [id number] Please contact and follow-up with Dr. Corado in the clinic in the next few days and apply ice to areas of swelling and discomfort. Use [id number] Tylenol or ibuprofen for pain. Please take antibiotics as directed and if there are any concerns about the antibiotic therapy please contact Dr. Corado. Return to ER as needed and as discussed. Expect aches and pains over the next several days secondary to this fall. - My Orders Last 24 Hours: My Active Orders 03/15/18 17:11 EKG Documentation Completion [RC] STAT 03/15/18 17:12 Cervical Spine wo Cont [CT] Stat Head wo Cont [CT] Stat UA W/MICROSCOPIC [URIN] Stat 03/15/18 18:05 CULTURE URINE [RM] Stat - Assessment/Plan Last 24 Hours: My Active Orders 03/15/18 17:11 EKG Documentation Completion [RC] STAT 03/15/18 17:12 Cervical Spine wo Cont [CT] Stat Head wo Cont [CT] Stat UA W/MICROSCOPIC [URIN] Stat 03/15/18 18:05 CULTURE URINE [RM] Stat
[2018-03-15] MEDS ORDERED: Acetaminophen 500 MG Tab PO ONE (18:14)
[2018-03-15 18:15] LABS: CHLORIDE,CL 101 mmol/L (98-107); SODIUM,NA 135 mmol/L (136-145)
[2018-03-15 19:07] VITALS: BP 126/97
--- NOTE | 2018-03-16 11:06 | CT ---
EXAM DATE: 03/15/18 PATIENT'S AGE: 88 Patient: SHILA LUQUE Facility: [place], [place] Site . Site : 1930 Study: CT Head WO CONT [id number]/[id number] 5:35:11 PM Ordering Physician: Doctor Mortensen Final Report: INDICATION: Trauma TECHNIQUE: CT head without contrast. COMPARISON: None available FINDINGS: There is mild age-related cortical atrophy. The ventricles are within normal limits for the patient`s age. There is no mass effect or midline shift. White matter hypodensities are suggestive of chronic small vessel ischemic changes. There is no evidence of a gross acute intracranial hemorrhage. No acute calvarial fracture is seen. There is inferior occipital and suboccipital scalp swelling. Degenerative changes are noted in the bilateral mandibular heads. There is polypoid mucosal thickening in the left maxillary sinus. The mastoid air cells are clear. Post cataract surgery changes are seen. IMPRESSION: No evidence of a gross acute intracranial hemorrhage, mass effect or loss of jasso-white differentiation. Dictated by Amari Sandy MD @ 03/15/2018 5:53:46 PM Please note that all CT scans at this facility use dose modulation, iterative reconstruction, and/or weight-based dosing when appropriate to reduce radiation dose to as low as reasonably achievable. Dictated by: Amari Sandy MD @ 03/15/2018 17:53:56 (Electronic Signature) Report Signed by Proxy. [facility] MEDICAL CENTERAnastasia
--- NOTE | 2018-03-16 11:07 | CT ---
EXAM DATE: 03/15/18 PATIENT'S AGE: 88 Patient: SHILA LUQUE Facility: [place], [place] Site . Site : 1930 Study: CT Spine Cervical WO CONT [id number]/21/2018 5:41:27 PM Ordering Physician: Doctor Mortensen Final Report: INDICATION: Trauma TECHNIQUE: CT cervical spine without contrast. COMPARISON: None available FINDINGS: Osteopenia is noted. The cervical spine alignment is within normal limits. The craniocervical and atlantoaxial alignments are near anatomical. There is no evidence of an acute cervical spine fracture. There is bulging of the posterior cortex of the T2 vertebral body on the sagittal reformats, without discrete cortical disruption. There is slight height loss of the T4 vertebral body. There is no significant precervical soft tissue swelling. Degenerative changes are noted at several levels. There is a chest tube in the posterior right upper lung with a loculated right pleural effusion and a small anterior pneumothorax. IMPRESSION: No evidence of an acute cervical spine fracture. Abnormal contour of the posterior T2 cortex and mild height loss of the T4 vertebral body, of unclear chronicity. If clinically indicated, further evaluation with MRI may be of value. A right chest tube with a loculated right pleural effusion and a small anterior pneumothorax. Dictated by Amari Sandy MD @ 03/15/2018 6:03:34 PM Please note that all CT scans at this facility use dose modulation, iterative reconstruction, and/or weight-based dosing when appropriate to reduce radiation dose to as low as reasonably achievable. Dictated by: Amari Sandy MD @ 03/15/2018 18:03:38 ----- ADDENDUM ----- The findings were communicated to the patient`s nurse, Emile Heller RN, on 03/15 at 6:07 p.m. Dictated by Amari Sandy MD @ Mar 15 2018 6:08PM (Electronic Signature) Report Signed by Proxy. FRAN
== END 2018-03-15 18:56 | disposition home or self-care (01) ==
LOC: MW.ED 17:08
DX: S09.90XA Unspecified injury of head, initial encounter (principal); S00.03XA Contusion of scalp, initial encounter; N39.0 Urinary tract infection, site not specified; I50.9 Heart failure, unspecified; Z88.8 Allergy status to other drugs, medicaments and biological substances; Z79.82 Long term (current) use of aspirin; Z79.899 Other long term (current) drug therapy; W01.10XA Fall on same level from slipping, tripping and stumbling with subsequent striking against unspecified object, initial encounter
CPT/HCPCS: 36415; 70450; 72125; 80053; 81001; 85025; 85610; 87086; 93005; 99284; A9270

== ENCOUNTER 2018-03-21 09:48 | Emergency (ER) | payer MEDICARE, BC ==
--- NOTE | 2018-03-21 10:09 | EDM.PDOC ---
ED HPI GENERAL MEDICAL PROBLEM - General Chief Complaint: General Stated Complaint: CONGESTED Time Seen by Provider: 03/21/18 10:02 Source of Information: Reports: Patient History Limitations: Reports: No Limitations - History of Present Illness INITIAL COMMENTS - FREE TEXT/NARRATIVE: HISTORY AND PHYSICAL: []88-year-old female presenting from the "[facility]" have concern of her weakness, mild dehydration History of Present Illness: []Alert female answering questions when asked She states she had 5 stools yesterday this morning Person accompanying her states that she was seen a week ago for constipation Concerns over increasing weakness His pleura vacs are emptied on Wednesdays and Fridays the right empties thousand generally less on the left. Her pleura vacs have been emptied today Review of Systems: As per history of present illness and below otherwise all systems reviewed and negative. Past medical history: As per history of present illness and as reviewed below otherwise noncontributory. Surgical history: As per history of present illness and as reviewed below otherwise noncontributory. Social history: No reported history of drug or alcohol abuse. Family history: As per history of present illness and as reviewed below otherwise noncontributory. Physical exam: Alert frail female 88 years old answering questions appropriately. She is showing a loss of weight. Loss of appetite over the last 2 weeks. Patient did walk into the emergency department with use of a walker. HEENT: Atraumatic, normocehpalic, pupils reactive, negative for conjunctival pallor or scleral icterus, mucous membranes moist, throat clear, neck supple, nontender, trachea midline. Lungs: Clear to auscultation, breath sounds equal bilaterally, chest non tender. Heart: S1S2, regular, negative for clicks, rubs, or JVD. Abdomen: Soft, nondistended, nontender. Negative for masses or hepatossplenmegaly. Negative for costovertebral tenderness. Pelvis: Stable nontender. Genitourinary: Deferred. Rectal: Deferred Extremities: Atraumatic, negative for cords or calf pain. Neurovascular unremarkable. Neuro: Awake, alert, oriented. Cranial nerves II through XII unremarkable. Cerebellum unremarkable. Motor and sensory unremarkable throughout. Exam nonfocal. Diagnostics: []CBC CMP and BNP chest x-ray abdominal x-ray EKG Therapeutics: []500 mg IV fluids Toradol IV Impression: [mild dehydration T11 compression fracture Plan: [Discharge home Tylenol 3 -3 times a day when necessary pain #12NR Follow-up with your primary care provider in the next 3 days Return to the emergency room as directed and discussed Definitive disposition and diagnosis as appropriate pending reevaluation and review of above. Onset: Gradual Duration: Week(s):, Getting Worse Location: Reports: Abdomen Quality: Reports: Ache Severity: Moderate Improves with: Reports: None Associated Symptoms: Reports: Malaise, Nausea/Vomiting Chest Pain Score (Numeric/FACES): 10 Upper Back Pain Score (Numeric/FACES): 10 - Related Data Allergies Allergy/AdvReac Type Severity Reaction Status Date / Time enalapril Allergy Cough Verified 03/21/18 10:08 Home Meds: Home Meds Acetaminophen [Tylenol Arthritis Pain] 650 mg PO Q4H PRN 08/08/17 [History] Albuterol Sulfate 2.5 mg INH Q6H PRN 08/08/17 [History] Aspirin 325 mg PO DAILY 08/08/17 [History] Famotidine [Pepcid] 20 mg PO BID 08/08/17 [History] Furosemide [Lasix] 40 mg PO DAILY 08/08/17 [History] Loperamide [Imodium] 2 mg PO QID PRN 08/08/17 [History] Magnesium Oxide 400 mg PO BID 08/08/17 [History] Meclizine [Antivert] 12.5 mg PO DAILY 08/08/17 [History] acetaZOLAMIDE [Acetazolamide] 250 mg PO BID 08/08/17 [History] Calcium Citrate/Vitamin D3 [Calcium Citrate - Vit D Caplet] 250 - 315 mg PO DAILY 08/09/17 [History] Magnesium Hydroxide [Milk of Magnesia] 30 ml PO Q72H PRN 08/09/17 [History] Metoprolol Tartrate 25 mg PO BID 08/09/17 [History] Potassium Chloride 20 meq PO DAILY 08/09/17 [History] guaiFENesin [Tussin] 1 tsp PO Q4H PRN 08/09/17 [History] Dextran 70/Hypromellose/PF [Artificial Tears Drops] 1 drop EYEBOTH QID PRN 02/25 [History] Spironolactone [Aldactone] 25 mg PO DAILY 02/25/18 [History] Calcitonin ([place]) [Miacalcin Nasal [place]] 1 spray NASLF Q2D 03/15/18 [History] Calcitonin ([place]) [Miacalcin Nasal [place]] 1 spray NASRT Q2D 03/15/18 [History] Cholecalciferol (Vitamin D3) [Vitamin D3] 2,000 unit PO DAILY 03/15/18 [History] Ergocalciferol (Vitamin D2) [Vitamin D2] 50,000 unit PO TU 03/15/18 [History] Loperamide [Imodium] 4 mg PO ONETIME PRN 03/15/18 [History] Mag Hydrox/Al Hydrox/Simeth [Maalox Maximum Strength Susp] 15 - 30 ml PO QID PRN 03/15/18 [History] Polyethylene Glycol 3350 [MiraLAX] 17 gm PO BID 03/15/18 [History] Ondansetron [Zofran ODT] 4 mg PO Q6H PRN #12 tab.dis 03/21/18 [Rx] Past Medical History HEENT History: Reports: Cataract, Hard of Hearing, Impaired Vision Cardiovascular History: Reports: Other (See Below) Other Cardiovascular History: Hx of CHF and A-fib with 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 Stable since Respiratory History: Reports: None Other Respiratory History: Bilateral Pleuravacs that are drained (Right every 3 days; about 1 Liter) (left every 12 days- approx 500ml every 12 days) Gastrointestinal History: Reports: None Genitourinary History: Reports: None TRIP FOLLOWER History: Reports: Musculoskeletal History: Reports: Other (See Below) Other Musculoskeletal History: recent low back pain; has been seeing a chiropractor Neurological History: Reports: None Psychiatric History: Reports: None Endocrine/Metabolic History: Reports: None Hematologic History: Reports: Anemia Other Hematologic History: Thrombocytopenia Immunologic History: Reports: None Oncologic (Cancer) History: Reports: Other (See Below) Dermatologic History: Reports: None Other Dermatologic History: edema - Infectious Disease History Infectious Disease History: Reports: Chicken Pox, Measles, Mumps - Past Surgical History Head Surgeries/Procedures: Reports: None HEENT Surgical History: Reports: Cataract Surgery Cardiovascular Surgical History: Reports: Valve Replacement GI Surgical History: Reports: None Female Surgical History: Reports: None Neurological Surgical History: Reports: None Musculoskeletal Surgical History: Reports: Knee Replacement, Other (See Below) 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 ED EXAM, GENERAL - Physical Exam Exam: See Below (see dictation) EKG INTERPRETATION EKG Date: 03/21/18 Rhythm: NSR Rate (Beats/Min): 74 Comparison: No Change Course - Vital Signs Last Recorded V/S: Last Vital Signs Temp 36.3 C 03/21/18 12:35 Pulse 91 03/21/18 12:35 Resp 16 03/21/18 12:35 BP 139/78 03/21/18 12:35 Pulse Ox 98 03/21/18 12:35 - Orders/Labs/Meds Orders: Active Orders 24 hr Category Date Time Status EKG Documentation Completion [RC] STAT Care 03/21/18 10:12 Active Abdomen 2V AP Flat Upright [CR] Stat Exams 03/21/18 10:13 Taken Chest 2V [CR] Stat Exams 03/21/18 10:12 Taken Thoracic Spine 3V [CR] Stat Exams 03/21/18 10:15 Taken CULTURE URINE [RM] Stat Lab 03/21/18 10:12 Ordered UA W/MICROSCOPIC [URIN] Stat Lab 03/21/18 10:12 Ordered Sodium Chloride 0.9% [Normal Saline] 500 ml Med 03/21/18 11:15 Active IV STAT Sodium Chloride 0.9% [Saline Flush] Med 03/21/18 10:12 Active 10 ml FLUSH ASDIRECTED PRN Sodium Chloride 0.9% [Saline Flush] Med 03/21/18 10:12 Active 2.5 ml FLUSH ASDIRECTED PRN Saline Lock Insert [OM.PC] Stat Oth 03/21/18 10:12 Ordered Medication Orders Sodium Chloride (Normal Saline) 500 mls @ 999 mls/hr IV STAT ALVAREZ Last Admin: 03/21/18 11:56 Dose: 999 mls/hr Sodium Chloride (Saline Flush) 10 ml FLUSH ASDIRECTED PRN PRN Reason: Keep Vein Open Last Admin: 03/21/18 11:57 Dose: 10 ml Sodium Chloride (Saline Flush) 2.5 ml FLUSH ASDIRECTED PRN PRN Reason: Keep Vein Open Last Admin: 03/21/18 13:18 Dose: 2.5 ml Labs: Laboratory Tests 03/21/18 03/21/18 03/21/18 Range/Units 10:40 10:40 10:40 WBC 8.01 (4.0-11.0) K/uL RBC 4.74 (4.30-5.90) M/uL Hgb 13.7 (12.0-16.0) g/dL Hct 43.0 (36.0-46.0) % MCV 90.7 (80.0-98.0) fL MCH 28.9 (27.0-32.0) pg MCHC 31.9 (31.0-37.0) g/dL RDW Std Deviation 54.6 (28.0-62.0) fl RDW Coeff of Shravan 17 H (11.0-15.0) % Plt Count 161 (150-400) K/uL MPV 9.40 (7.40-12.00) fL Neut % (Auto) 81.2 H (48.0-80.0) % Lymph % (Auto) 5.2 L (16.0-40.0) % Sabine % (Auto) 12.9 (0.0-15.0) % Eos % (Auto) 0.5 (0.0-7.0) % Baso % (Auto) 0.2 (0.0-1.5) % Neut # (Auto) 6.5 H (1.4-5.7) K/uL Lymph # (Auto) 0.4 L (0.6-2.4) K/uL Sabine # (Auto) 1.0 H (0.0-0.8) K/uL Eos # (Auto) 0.0 (0.0-0.7) K/uL Baso # (Auto) 0.0 (0.0-0.1) K/uL Nucleated RBC % 0.0 /100WBC Nucleated RBCs # 0 K/uL INR 0.98 Sodium 134 L (136-145) mmol/L Potassium 5.1 (3.5-5.1) mmol/L Chloride 102 (98-107) mmol/L Carbon Dioxide 26.0 (21.0-32.0) mmol/L BUN 40 H (7.0-18.0) mg/dL Creatinine 1.1 H (0.6-1.0) mg/dL Est Cr Clr Drug Dosing 26.22 mL/min Estimated GFR (MDRD) 46.8 ml/min Glucose 111 H (74-106) mg/dL Calcium 8.3 L (8.5-10.1) mg/dL Total Bilirubin 0.4 (0.2-1.0) mg/dL AST 28 (15-37) IU/L ALT 22 (14-63) IU/L Alkaline Phosphatase 136 H (46-116) U/L Troponin I < 0.050 (0.000-0.056) ng/mL B-Natriuretic Peptide (<100) PG/ML Total Protein 6.3 L (6.4-8.2) g/dL Albumin 2.4 L (3.4-5.0) g/dL Globulin 3.9 H (2.0-3.5) g/dL Albumin/Globulin Ratio 0.6 L (1.3-2.8) Amylase 65 (25-115) U/L 03/21/18 Range/Units 10:40 WBC (4.0-11.0) K/uL RBC (4.30-5.90) M/uL Hgb (12.0-16.0) g/dL Hct (36.0-46.0) % MCV (80.0-98.0) fL MCH (27.0-32.0) pg MCHC (31.0-37.0) g/dL RDW Std Deviation (28.0-62.0) fl RDW Coeff of Shravan (11.0-15.0) % Plt Count (150-400) K/uL MPV (7.40-12.00) fL Neut % (Auto) (48.0-80.0) % Lymph % (Auto) (16.0-40.0) % Sabine % (Auto) (0.0-15.0) % Eos % (Auto) (0.0-7.0) % Baso % (Auto) (0.0-1.5) % Neut # (Auto) (1.4-5.7) K/uL Lymph # (Auto) (0.6-2.4) K/uL Sabine # (Auto) (0.0-0.8) K/uL Eos # (Auto) (0.0-0.7) K/uL Baso # (Auto) (0.0-0.1) K/uL Nucleated RBC % /100WBC Nucleated RBCs # K/uL INR Sodium (136-145) mmol/L Potassium (3.5-5.1) mmol/L Chloride (98-107) mmol/L Carbon Dioxide (21.0-32.0) mmol/L BUN (7.0-18.0) mg/dL Creatinine (0.6-1.0) mg/dL Est Cr Clr Drug Dosing mL/min Estimated GFR (MDRD) ml/min Glucose (74-106) mg/dL Calcium (8.5-10.1) mg/dL Total Bilirubin (0.2-1.0) mg/dL AST (15-37) IU/L ALT (14-63) IU/L Alkaline Phosphatase (46-116) U/L Troponin I (0.000-0.056) ng/mL B-Natriuretic Peptide 408 H (<100) PG/ML Total Protein (6.4-8.2) g/dL Albumin (3.4-5.0) g/dL Globulin (2.0-3.5) g/dL Albumin/Globulin Ratio (1.3-2.8) Amylase (25-115) U/L Meds: Medications Generic Name Dose Route Start Last Admin Trade Name Freq PRN Reason Stop Dose Admin Sodium Chloride 500 mls @ 999 mls/hr 03/21/18 11:15 03/21/18 11:56 Normal Saline IV 999 mls/hr STAT ALVAREZ Administration Sodium Chloride 10 ml 03/21/18 10:12 03/21/18 11:57 Saline Flush FLUSH 10 ml ASDIRECTED PRN Administration Keep Vein Open Sodium Chloride 2.5 ml 03/21/18 10:12 03/21/18 13:18 Saline Flush FLUSH 2.5 ml ASDIRECTED PRN Administration Keep Vein Open Discontinued Medications Generic Name Dose Route Start Last Admin Trade Name Freq PRN Reason Stop Dose Admin Ketorolac Tromethamine 30 mg 03/21/18 13:09 03/21/18 13:17 Toradol IVPUSH 03/21/18 13:10 30 mg ONETIME ONE Administration Departure - Departure Time of Disposition: 13:15 Disposition: Home, Self-Care 01 Condition: Good Clinical Impression: Compression fracture of body of thoracic vertebra, Dehydration, mild - Discharge Information Prescriptions: Ondansetron [Zofran ODT] 4 mg PO Q6H PRN #12 tab.dis PRN Reason: Pain (Moderate 4-6) Instructions: Rehydration, Adult, Spinal Compression Fracture Referrals: PCP,None [Primary Care Provider] - Forms: ED Department Discharge Additional Instructions: The following information is given to patients seen in the emergency department who are being discharged to home. This information is to outline your options for follow-up care. We provide all patients seen in our emergency department with a follow-up referral. The need for follow-up, as well as the timing and circumstances, are variable depending upon the specifics of your emergency department visit. If you don't have a primary care physician on staff, we will provide you with a referral. We always advise you to contact your personal physician following an emergency department visit to inform them of the circumstance of the visit and for follow-up with them and/or the need for any referrals to a consulting specialist. The emergency department will also refer you to a specialist when appropriate. This referral assures that you have the opportunity for followup care with a specialist. All of these measure are taken in an effort to provide you with optimal care, which includes your followup. Under all circumstances we always encourage you to contact your private physician who remains a resource for coordinating your care. When calling for followup care, please make the office aware that this follow-up is from your recent emergency room visit. If for any reason you are refused follow-up, please contact the [facility] emergency department at and asked to speak to the emergency department charge nurse. - My Orders Last 24 Hours: My Active Orders 03/21/18 10:12 EKG Documentation Completion [RC] STAT Chest 2V [CR] Stat CULTURE URINE [RM] Stat UA W/MICROSCOPIC [URIN] Stat Sodium Chloride 0.9% [Saline Flush] 10 ml FLUSH ASDIRECTED PRN Sodium Chloride 0.9% [Saline Flush] 2.5 ml FLUSH ASDIRECTED PRN Saline Lock Insert [OM.PC] Stat 03/21/18 10:13 Abdomen 2V AP Flat Upright [CR] Stat 03/21/18 10:15 Thoracic Spine 3V [CR] Stat 03/21/18 11:15 Sodium Chloride 0.9% [Normal Saline] 500 ml IV STAT - Assessment/Plan Last 24 Hours: My Active Orders 03/21/18 10:12 EKG Documentation Completion [RC] STAT Chest 2V [CR] Stat CULTURE URINE [RM] Stat UA W/MICROSCOPIC [URIN] Stat Sodium Chloride 0.9% [Saline Flush] 10 ml FLUSH ASDIRECTED PRN Sodium Chloride 0.9% [Saline Flush] 2.5 ml FLUSH ASDIRECTED PRN Saline Lock Insert [OM.PC] Stat 03/21/18 10:13 Abdomen 2V AP Flat Upright [CR] Stat 03/21/18 10:15 Thoracic Spine 3V [CR] Stat 03/21/18 11:15 Sodium Chloride 0.9% [Normal Saline] 500 ml IV STAT
[2018-03-21] MEDS ORDERED: Sodium Chloride 0.9% 10 ML Syringe FLUSH PRN (10:12)
[2018-03-21] MEDS ORDERED: Sodium Chloride 0.9% 2.5 ML Syringe FLUSH PRN (10:12)
[2018-03-21 11:14] LABS: SODIUM,NA 134 mmol/L (136-145)
[2018-03-21] MEDS ORDERED: Sodium Chloride 0.9% 500 ML IV SCH (11:15)
[2018-03-21 11:36] LABS: CHLORIDE,CL 102 mmol/L (98-107)
[2018-03-21] MEDS ORDERED: Ketorolac 30 MG/ML SDV IVPUSH ONE (13:09)
--- NOTE | 2018-03-21 16:22 | CR ---
EXAM DATE: 03/21/18 PATIENT'S AGE: 88 Patient: SHILA LUQUE Facility: [place], [place] Site . Site : 1930 Study: XRay Chest [id number]/21/2018 11:41:32 AM Ordering Physician: Doctor Mortensen Final Report: INDICATION: Pain, shortness of breath. COMPARISON: AP chest 08/11/2017. FINDINGS: Marked interval improvement is noted in aeration of lungs when compared to prior exam of 08/11/2017. There has been interval resolution of the pulmonary edema pattern and interval decrease in size of the bilateral pleural effusions. Persistent fluid in the right minor fissure. Right thoracostomy tube remains unchanged in position and there is a left thoracostomy tube in the left lower lung. There is no pneumothorax. Cardiac and mediastinal silhouettes are stable with changes of a median sternotomy and aortic valve replacement. Calcification is noted of the mitral anulus. Bones remain diffusely demineralized with loss of height of the T 8 and T 11 vertebral bodies IMPRESSION: 1. Bilateral thoracostomy tubes. No pneumothorax. 2. Improved aeration of both lungs with interval decrease in size of bilateral pleural effusions and resolution of pulmonary edema. Dictated by Jazz Christy MD @ Mar 21 2018 11:53AM (Electronic Signature) Report Signed by Proxy. FRAN
--- NOTE | 2018-03-21 16:23 | CR ---
EXAM DATE: 03/21/18 PATIENT'S AGE: 88 Patient: SHILA LUQUE Facility: [place], [place] Site . Site : 1930 Study: XRay Spine Thoracic [id number]/21/2018 11:42:28 AM Ordering Physician: Doctor Mortensen Final Report: INDICATION: Pain, fall. COMPARISON: The thoracic spine exam 0 03/11. FINDINGS: Since the prior exam there has been further loss of height of the T11 compression deformity. Previously the anterior height was 1.9 cm and is now 1.6 cm. The remaining compression deformities of the thoracic spine are stable. The bones remain diffusely demineralized. There are bilateral thoracostomy tubes in changes of median sternotomy with small bilateral pleural effusions. IMPRESSION: 1. Interval loss of vertebral body height of T11 vertebral body when compared to prior exam of 03/11/2018. 2. Bony demineralization. Dictated by Jazz Christy MD @ Mar 21 2018 12:44PM (Electronic Signature) Report Signed by Proxy. FRAN
--- NOTE | 2018-03-21 16:24 | CR ---
EXAM DATE: 03/21/18 PATIENT'S AGE: 88 Patient: SHILA LUQUE Facility: [place], [place] Site . Site : 1930 Study: XRay Abdomen [id number]/21/2018 11:43:52 AM Ordering Physician: Doctor Mortensen Final Report: INDICATION: Left abdominal pain. COMPARISON: Abdominal exam 03/04/2018. FINDINGS: Visualized bowel gas pattern is normal. There is no radiographic evidence of intestinal obstruction nor free intraperitoneal air. Bilateral thoracostomy tubes are noted in the visualized lower lungs. IMPRESSION: Normal bowel gas pattern. Dictated by Jazz Christy MD @ Mar 21 2018 12:50PM (Electronic Signature) Report Signed by Proxy. FRAN
[2018-03-21 19:52] VITALS: BP 117/64
== END 2018-03-21 14:10 | disposition home or self-care (01) ==
LOC: MW.ED 09:48
DX: E86.0 Dehydration (principal); S22.089A Unspecified fracture of T11-T12 vertebra, initial encounter for closed fracture; I50.9 Heart failure, unspecified; Z79.82 Long term (current) use of aspirin; Z88.8 Allergy status to other drugs, medicaments and biological substances
CPT/HCPCS: 36415; 71046; 72072; 74019; 80053; 82150; 83880; 84484; 85025; 85610; 93005; 96361; 96374; 99285; J1885; J7040